=== PATIENT | male | born 1940 ===

== ENCOUNTER → 2017-09-14 | Outpatient (CLI) | payer MEDICARE, OTHER ==
[~2017-09-14] MED LIST: ALLO100 PO; ALLO300 PO; ATOR40TA; Aspirin EC81 MG; CEPH500 PO; DICL75ER PO; ELIQUIS5 MG; ENOX100I SC; ENOX120I SC; GLIP5 PO; HYDACE5 PO; INDO50; INSULANPEN SC; Indomethacin50 MG; LISHYD2012 PO; LISI20 PO; LISI5 PO; Levitra20 MG PO; MELO7.5 PO; METF500 PO; OMEG1CAP30 PO; PIOG45 PO; SITA100T2 PO; Simvastatin20 MG PO; WARF2.5 PO; Zofran4 MG PO
[2017-09-15 13:05] LABS: Stool Occult Bld Immuno 1 Negative (NEGATIVE)
== END | disposition home or self-care (01) ==
LOC: LAB 09:54 → LAB SHORT 09:54
PROVIDERS: Physician Assistant
DX: D64.9 Anemia, unspecified (principal)
CPT/HCPCS: 82274

== ENCOUNTER 2018-09-04 00:05 | Emergency (ER) | payer MEDICARE, OTHER ==
[~2018-09-04] VITALS: Ht 185.4 cm; Wt 111.1 kg
== END 2018-09-04 02:04 | disposition home or self-care (01) ==
LOC: ER 00:05
DX: H93.8X2 Other specified disorders of left ear (principal); Z88.2 Allergy status to sulfonamides; Z88.8 Allergy status to other drugs, medicaments and biological substances; Z79.899 Other long term (current) drug therapy; Z79.4 Long term (current) use of insulin; Z87.891 Personal history of nicotine dependence
CPT/HCPCS: 99282

== ENCOUNTER 2019-05-06 07:43 | Day surgery (SDC) | payer MEDICARE, OTHER ==
[~2019-05-06] VITALS: Ht 182.9 cm; Wt 114.8 kg
[2019-05-06] MEDS ORDERED: SILD50TA PO (08:37)
[2019-05-06] MEDS ORDERED: LISI20 PO (08:37)
[2019-05-06] MEDS ORDERED: FERSU300 PO (08:38)
--- NOTE | 2019-05-06 08:42 | NUR ---
05/06/19 0878 Lul Bowman CALL LIGHT WITHIN REACH. FRIEND AT BEDSIDE.
== END 2019-05-06 10:22 | disposition home or self-care (01) ==
LOC: ORSCSDS 07:43
PROVIDERS: Orthopaedic Surgery
PROC: 01N50ZZ Release Median Nerve, Open Approach (ICD-10-PCS; principal; 2019-05-06 09:15)
DX: G56.02 Carpal tunnel syndrome, left upper limb (principal); E11.9 Type 2 diabetes mellitus without complications; Z79.4 Long term (current) use of insulin; Z79.899 Other long term (current) drug therapy; Z87.891 Personal history of nicotine dependence
CPT/HCPCS: 82947; J0690; J2405; J2704; J7120

== ENCOUNTER → 2019-05-19 | Outpatient (CLI) | payer MEDICARE, OTHER ==
[~2019-05-19] MED LIST changes: +FERSU300 PO; +SILD50TA PO
== END | disposition home or self-care (01) ==
LOC: LAB 10:30 → LAB SHORT 10:30
DX: K52.9 Noninfective gastroenteritis and colitis, unspecified (principal)
CPT/HCPCS: 87015; 87045; 87046; 87177; 87205; 87209; 87899

== ENCOUNTER 2020-03-25 20:39 | Inpatient (IN) | payer MEDICARE, OTHER ==
[~2020-03-25] VITALS: Ht 185.4 cm; Wt 105.0 kg
[~2020-03-25 20:39] MED LIST changes: +BASAGLAR K100 UNIT/1 SC; -ELIQUIS5 MG; +ELIQUIS5 MG PO; -INDO50; +INDO50 PO; -INSULANPEN SC
[2020-03-25 21:06] LABS: PO2 Arterial 52.7 mmHg (80-100); pH Blood Arterial 7.45 (7.35-7.45)
[2020-03-25 21:10] LABS: BASOPHILS ABSOLUTE AUTO 0.02 K/mm3 (0.00-0.23); BASOPHILS PERCENT AUTO 0 % (0-2); EOSINOPHILS PERCENT AUTO 0 % (0-6); Hematocrit 36.3 % (37.0-53.0); Hemoglobin 12.5 g/dL (13.5-17.5); IMMATURE GRAN ABSOLUTE AUTO 0.04 K/mm3 (0.00-0.10); IMMATURE GRAN PERCENT AUTO 0 % (0-1); LYMPHOCYTES ABSOLUTE AUTO 0.42 K/mm3 (0.84-5.20); LYMPHOCYTES PERCENT AUTO 4 % (21-46); MONOCYTES ABSOLUTE AUTO 0.47 K/mm3 (0.16-1.47); MONOCYTES PERCENT AUTO 4 % (4-13); Mean Corpuscular HGB 31.8 pg (26.0-34.0); Mean Corpuscular HGB Conc 34.4 g/dL (31.5-36.5); Mean Corpuscular Volume 92 fL (80-100); NEUTROPHILS ABSOLUTE AUTO 10.29 K/mm3 (1.96-9.15); NEUTROPHILS PERCENT AUTO 92 % (41-73); Platelet Count 153 K/mm3 (150-400); RDW Coefficient Variation 13.1 % (11.7-14.2); RDW Standard Deviation 44.6 fL (35.1-46.3); Red Blood Cell Count 3.93 M/mm3 (4.30-5.90); White Blood Cell Count 11.24 K/mm3 (4.00-11.30)
[2020-03-25 21:27] LABS: International Normalized Ratio 1.09; Prothrombin Time Results 11.6 Sec (9.7-11.5)
[2020-03-25 21:34] LABS: Alanine Aminotransfer (ALT/SGP 58 U/L (12-78); Albumin, Blood 2.9 g/dL (3.4-5.0); Albumin/Globulin Ratio 0.7 (0.8-1.8); Alk Phos 89 U/L (50-136); Anion Gap 8 mmol/L (6-16); Aspartate Aminotrans (AST/SGOT 52 U/L (12-37); Bilirubin, Total 0.8 mg/dL (0.1-1.0); Blood Urea Nitrogen 23 mg/dL (8-24); Bun/Creatinine Ratio 22.1 (12.0-20.0); CO2, Blood 22 mmol/L (21-32); Calcium, Blood 8.5 mg/dL (8.5-10.1); Chloride, Blood 104 mmol/L (98-108); Creatinine, Blood 1.04 mg/dL (0.60-1.20); Globulin, Blood 4.1 g/dL (2.2-4.0); Glomerular Filtration Rate >60 (60-); Glucose, Blood 146 mg/dL (70-99); Potassium, Blood 3.9 mmol/L (3.5-5.5); Sodium, Blood 134 mmol/L (136-145); Troponin I <0.015 ng/mL (0.000-0.040)
--- NOTE | 2020-03-26 03:00 | NUR ---
PT TO ICU 11 VIA [facility] WITH ED RN ON 6L PER OXYMIZER AND SURGICAL MASK IN PLACE. PT ALERT AND ORIENTED x4, AMBULATES FROM ED [place] TO HOSPITAL BED WITH SBA. O2 SATURATIONS DECREASED TO 70'S WITH ACTIVITY, INCREASED OXYMIZER TO 15L WITH SLOW RECOVER TO O2 SATURATIONS>90%. CALL PLACED TO DR SESAY, ORDER FOR AIRVO IF O2 SATURATIONS MAINTAIN<90% AT 15L PER OXYMIZER. PT REPORTS NOT BEING ABLE TO TAKE A DEEP BREATH IN, STS HE BEGINS COUGHING AND CANNOT STOP WITH DEEP BREATHS. DISCUSSED WITH PT SITTING UPRIGHT AND PRONING DURING TIMES OF INCREASED SOB, PT VERBALIZED UNDERSTANDING. MONITOR SHOWS SINUS RHYTHM, HR 60'S-70'S, HYPERTENSIVE AT TIMES. PT DENIES GI/ ISSUES, STS HE HAD DIARRHEA APPROX 1 WEEK AGO BUT HAS SINCE HAD NORMAL BM, LAST BM 03/25/20. PT STS [place] CAME [place], BEGAN HAVING SOB/COUGHING ON 03/20/20 AND RECIEVED A COVID TEST ON 03/24/20 (RESULTS STILL PENDING), PT WITH INCREASED SOB CALLED EMS 03/25/20, BROUGHT TO ED WHERE COVID SWAB CONFIRMED POSTITIVE RESULT.
[2020-03-26 03:50] LABS: BASOPHILS ABSOLUTE AUTO 0.03 K/mm3 (0.00-0.23); BASOPHILS PERCENT AUTO 0 % (0-2); EOSINOPHILS PERCENT AUTO 0 % (0-6); Hematocrit 35.2 % (37.0-53.0); Hemoglobin 12.2 g/dL (13.5-17.5); IMMATURE GRAN ABSOLUTE AUTO 0.05 K/mm3 (0.00-0.10); IMMATURE GRAN PERCENT AUTO 0 % (0-1); LYMPHOCYTES ABSOLUTE AUTO 0.28 K/mm3 (0.84-5.20); LYMPHOCYTES PERCENT AUTO 2 % (21-46); MONOCYTES ABSOLUTE AUTO 0.31 K/mm3 (0.16-1.47); MONOCYTES PERCENT AUTO 3 % (4-13); Mean Corpuscular HGB Conc 34.7 g/dL (31.5-36.5); Mean Corpuscular Volume 92 fL (80-100); Mean Platelet Volume 9.9 fL (9.1-12.4); NEUTROPHILS ABSOLUTE AUTO 11.31 K/mm3 (1.96-9.15); NEUTROPHILS PERCENT AUTO 94 % (41-73); Platelet Count 152 K/mm3 (150-400); RDW Coefficient Variation 13.2 % (11.7-14.2); RDW Standard Deviation 45.2 fL (35.1-46.3); Red Blood Cell Count 3.81 M/mm3 (4.30-5.90); White Blood Cell Count 11.98 K/mm3 (4.00-11.30)
[2020-03-26 04:14] LABS: Alanine Aminotransfer (ALT/SGP 56 U/L (12-78); Albumin, Blood 2.6 g/dL (3.4-5.0); Albumin/Globulin Ratio 0.6 (0.8-1.8); Alk Phos 85 U/L (50-136); Anion Gap 8 mmol/L (6-16); Aspartate Aminotrans (AST/SGOT 47 U/L (12-37); Bilirubin, Total 0.6 mg/dL (0.1-1.0); Blood Urea Nitrogen 23 mg/dL (8-24); Bun/Creatinine Ratio 24.8 (12.0-20.0); CO2, Blood 24 mmol/L (21-32); Calcium, Blood 8.4 mg/dL (8.5-10.1); Chloride, Blood 103 mmol/L (98-108); Creatinine, Blood 0.93 mg/dL (0.60-1.20); Globulin, Blood 4.1 g/dL (2.2-4.0); Glomerular Filtration Rate >60 (60-); Glucose, Blood 184 mg/dL (70-99); Potassium, Blood 4.3 mmol/L (3.5-5.5); Sodium, Blood 135 mmol/L (136-145); Total Protein, Blood 6.7 g/dL (6.4-8.2)
--- NOTE | 2020-03-26 06:28 | NUR ---
SHIFT SUMMARY PT RESTS IN BED T/O NIGHT, CONTINUES TO REPORT COUGHING "FITS" WHERE HE BECOMES VERY SHORT OF BREATH AND O2 DESATURATS TO MID 80% WITH VERY SLOW RECOVERY. PT BEGAN MAINTAINING O2 SATURATIONS 86-88% ON 15L PER OXYMIZER, PLACED ON AIRVO CURRENTLY @ 50L AND 78% FIO2. DISCUSSED WITH PT CODE STATUS AND PT REPORTS HE WOULD WANT INTUBATION AND CHEST COMPRESSIONS IF NECESSARY. MONITOR SHOWS SINUS RHYTHM WITH HR 60'S-70'S, HYPERTENSIVE AT TIMES. PT CONTINUES TO DENY GI/ ISSUES, USES URINAL AT BEDSIDE INDEPENDENTLY. CALL LIGHT WITHIN REACH, ROOM PHONE AND CELL PHONE AT BEDSIDE.
--- NOTE | 2020-03-26 08:22 | NUR ---
CARE ASSUMED CARE AND REPORT ASSUMED FROM OSCAR NUNEZ. PT SLEEPING BUT EASILY AWAKENS. NOW SITTING UP IN BED; ADJUSTS HIMSELF IN BED. WITH SIMPLE MOVEMENTS, PT EASILY BECOMES SOB. ENCOURAGED PT TO LAY ON SIDES AND IN PRONE POSITION IF TOLERATED TO HELP WITH OXYGENATION. PT AGREES HE WILL ATTEMPT POSITION CHANGES. A/O X 3, CALM AND COOPERATIVE. PERSISTENT DRY COUGH AT THIS TIME; WILL INQUIRE ABOUT COUGH MEDICATION. VSS. AFEBRILE. NSR, HR 70S AND BP WNL. NO DIFFICULTY TAKING PILLS. WILL INQUIRE ABOUT DIET ORDER PT IS NPO AT THIS TIME. LUNG SOUNDS CLEAR IN UPPER HATHAWAY BUT DIMINSHED IN BASES; NO ABNORMAL LUNG SOUNDS AUSCULTATED. IV SALINE LOCKED. AIRVO 50L, FIO2 75%. WILL CONTINUE TO MONITOR.
--- NOTE | 2020-03-26 12:13 | NUR ---
REASSESSMENT PT REMAINS IN ROOM. CURRENTLY LYING ON SIDE. REMAINS ON AIRVO 50L, 65% FIO2. LUNG SOUNDS REMAIN CLEAR AND DIMINISHED. PT DID GET OUT OF BED AND AMBULATE TO TOILET FOR LARGE BM. UNABLE TO OBTAIN SPECIMEN. WHILE PT WAS SITTING ON TOILET, HE HAD COUGHING SPELL AND BECAME SOB. O2 INCREASED TO 85%. PT WAS ABLE TO GET BACK INTO BED, RECIEVED BEDBATH AND LINEN CHANGE, AND WAS ABLE TO RECOVER. VSS. REMAINS IN NSR, HR 80S. WILL CONTINUE TO MONITOR.
--- NOTE | 2020-03-26 16:14 | NUR ---
REASSESSMENT PT REMAINS IN ROOM, IN BED, WATCHING TV. NSR, HR 70-80S. BP WNL. AFEBRILE. NO CHANGE IN LUNG SOUNDS. PT DOES REMAIN ON AIRVO 50L, 84%. REMENDEVIR INFUSING PER ORDER. TESSALON VALERIO GIVEN AT THIS TIME. PT DESATURATES AT TIME, BUT DOES COME BACK UP TO AVERAGE OF 92%. CALL LIGHT IN REACH. WILL CONTINUE TO MONITOR.
--- NOTE | 2020-03-26 18:20 | NUR ---
SHIFT SUMMARY PT OUT OF BED ONCE THIS MORNING TO TOILET FOR BOWEL MOVEMENT AND DESATURATED QUICKLY. SINCE THEN, HE HAS REMAINED IN BED. O2 DEMANDS HAVE INCREASED THROUGHOUT AFTERNOON. PT CURRENTLY ON 60L, FIO2 75% WHILE IN PRONE POSITION. HOSPITALIST, MD MCBRIDE NOTIFIED OF INCREASED O2. PULMONOLOGY CONSULTED, SPOKE WITH MD ELLIS, WHO ORDERED BIPAP PROTOCOL IF NEEDED. PT DID TOLERATE EATING SMALL MEALS WITH NO SIGNS OF CHOKING. HAS REMAINED IN NSR, HR 70-80S WITH STABLE BP. AFEBRILE TODAY. TESSALON PEARLS AND ROBITUSSIN COUGH SYRUP GIVEN, ON ALTERNATING SCHEDULE. WILL ENCOURAGE PT TO CONTINUE TO STAY IN PRONE POSITION LONG TOLERATED. WILL GIVE BEDSIDE, HANDOFF REPORT TO JORDAN RN.
--- NOTE | 2020-03-26 21:48 | NUR ---
ASSUMPTION OF CARE PT AWAKE IN BED WATCHING TELEVISION, ORIENTED x4, ON AIRVO @ 60L AND 88% TO MAINTAIN O2 SATURATIONS>90%, PT HAS TIMES OF DESATURATIONS OF 82-87% MOSTLY ASSOCIATED WITH EXERTION AND COUGHING, PT VERY SLOW TO RECOVER BUT DOES NOT APPEAR TO BE IN ANY RESPIRATORY DISTRESS, REMAINS CALM AND CONCENTRATES ON SLOW BREATHS. PT CONTINUES TO HAVE DIFFICULTY TAKING DEEP BREATHS R/T COUGHING. MONITOR SHOWS SINUS RHYTHM WITH HR 70'S-80'S, HYPETENSION NOTED WITH SBP 150-160'S. PT IS AFEBRILE. PT DENIES GI/ ISSUES, URINALS AT BEDSIDE, PT USES INDEPENDENTLY. FRESH ICE WATER PROVIDED AT BEGINNING OF SHIFT, PT HAS CELL PHONE, ROOM PHONE, CALL LIGHT AND BED CONTROLS WITHIN REACH. HAND ELECTRONIC TECH PROVIDED AT BEDSIDE. PT DENIES ANY OTHER NEEDS AT THIS TIME.
--- NOTE | 2020-03-27 | NUR ---
PT DISCONNECTED O2 MONITOR FROM FINGER, TO PTS ROOM AND FOUND PT SIDEWAYS IN BED. RECONNECTED PT TO 02 MONITOR AND ASSISTED PT BACK TO SUPINE IN BED. PTS 02 SATURATIONS 83-85%, INCREASED FIO2 ON AIRVO WITH LITTLE IMPROVEMENT. ATTEMPTED REPOSITIONING PT HIGH FOWLERS. PT DECLINED POSITIONING PRONE. ATTEMPTED REPOSITIONING TO LEFT SIDE WITH NO IMPRVOEMENT. RT TO ROOM AND PT PALCED ON BIPAP.
--- NOTE | 2020-03-27 02:00 | NUR ---
PT PULLED CARDIAC AND O2 MONITOR, CALL PLACED TO DR SESAY, ORDERS FOR ONE TIME DOES OF ATIVAN AND PRECEDEX GTT IF ATIVAN NOT EFFECTIVE.
--- NOTE | 2020-03-27 02:15 | NUR ---
PT DISCONNECTED SELF FROM O2 MONITOR, TO PTS ROOM, PT MILDLY CONFUSED, ORIENTED TO SELF, LOCATION, AND EVENT BUT BELEIVES HE WILL BE GOING HOME TODAY. PT PLEASANT AND COOPERATIVE, EASILY REDIRECTED. PRECEDEX GTT INITIATED.
--- NOTE | 2020-03-27 03:00 | NUR ---
PT PULLED CALL LIGHT FROM WALL AND DISCONNECTED O2 MONITOR, NEW ORDER FOR BILAT SOFT WRIST RESTRAINTS. EXPLAINED REASON FOR RESTRAINTS TO PT, PT ACKNOWLEDGES UNDERSTANDING. SEE FLOWSHEET FOR PRECEDEX TITRATION.
--- NOTE | 2020-03-27 03:20 | NUR ---
PT PULLED WRIST RESTRAINTS OFF, REMOVED BIPAP AND SAT UP AT SIDE OF BED. THIS RN AND RT TO ROOM, O2 SATURATIONS 65% OFF OF BIPAP. PRECEDEX TITRATED TO 0.7 (SEE FLOWSHEET), PT POSTIONED BACK INTO BED, PLACED BACK IN WRIST RESTRAINTS. SEE RT ASSESSMENT/NOTES FOR BIPAP/CPAP SETTINGS.
[2020-03-27 04:12] LABS: Hematocrit 36.3 % (37.0-53.0); Hemoglobin 12.5 g/dL (13.5-17.5); Mean Corpuscular HGB 31.4 pg (26.0-34.0); Mean Corpuscular HGB Conc 34.4 g/dL (31.5-36.5); Mean Corpuscular Volume 91 fL (80-100); Mean Platelet Volume 10.3 fL (9.1-12.4); Platelet Count 190 K/mm3 (150-400); RDW Coefficient Variation 12.9 % (11.7-14.2); RDW Standard Deviation 43.7 fL (35.1-46.3); Red Blood Cell Count 3.98 M/mm3 (4.30-5.90); White Blood Cell Count 17.56 K/mm3 (4.00-11.30)
[2020-03-27 04:27] LABS: Anion Gap 10 mmol/L (6-16); Blood Urea Nitrogen 28 mg/dL (8-24); Bun/Creatinine Ratio 35.9 (12.0-20.0); CO2, Blood 21 mmol/L (21-32); Chloride, Blood 106 mmol/L (98-108); Creatinine, Blood 0.78 mg/dL (0.60-1.20); Glomerular Filtration Rate >60 (60-); Glucose, Blood 226 mg/dL (70-99); Potassium, Blood 3.5 mmol/L (3.5-5.5); Sodium, Blood 137 mmol/L (136-145)
--- NOTE | 2020-03-27 04:30 | NUR ---
PT CONTINUES TO BE RESTLESS/AGITATED IN BED, YELLING OVER BIPAP, PULLING AT RESTRAINTS. CALL PLACED TO DR SESAY, NEW ORDER FOR HALDOL AND ABG. WHILE IN ROOM WITH RT PT BECAME VERY VERBALLY ABUSIVE WITH STAFF AND MAKING FISTS WITH HANDS, PT REMAINED IN BILAT SOFT RESTRAINTS, HALDOL ADMINISTERED AND ABG OBTAINED. SEE RESULTS IN MAR.
[2020-03-27 04:33] LABS: PCO2 Arterial 35.1 mmHg (35-45); PO2 Arterial 68.2 mmHg (80-100); pH Blood Arterial 7.41 (7.35-7.45)
--- NOTE | 2020-03-27 06:00 | NUR ---
PT REMOVED O2 PULSE OXIMETER, TO PTS REMOVE TO REPLACE O2 MONITOR, AND TITRATE PRECEDEX PTS HR WAS DECREASING TO 45-55. PT FORCEFULLY GRABBED MY WRIST AND KICKED ME IN THE ABDOMEN. I REMOVED MYSELF FROMT HE ROOM AND NOTIFIED DR SESAY OF PTS INCREASED AGITATION. NEW ORDER FOR IM ZYPREXA. ZYPREXA ADMINISTERED WITH ASSISTANCE OF TWO OTHER STAFF MEMBERS, PT TOLERATED WELL, DECREASED AGITATION AT THIS TIME. PT TOLERATING CPAP.
--- NOTE | 2020-03-27 08:17 | NUR ---
CARE ASSUMED CARE AND REPORT ASSUMED FROM OSCAR NUNEZ. DURING REPORT, PT MANAGED TO GET HIS ARMS OUT OF RESTRAINTS, RIP HIS CPAP MASK OFF, AND ATTEMPT TO CLIMB OUT OF BED. SPO2 SATS IMMEDIATELY DECREASED TO LOW 80S AND PT WAS PHYSICALLY AGGRESSIVE TO STAFF. MANAGED TO GET HIM BACK INTO SUPINE POSITION IN BED WITH HOB SLIGHTLY ELEVATED, BUE WRISTS RESTRAINED, AND CPAP MASK BACK ON. CURRENTLY WEARING BIPAP IN CPAP MODE, WITH MODE 8, 100% FIO2. LUNG SOUNDS CLEAR BUT DIMINISHED ALL THROUGHOUT. PRECEDEX GTT AT 0.7 MCG. NSR, HR 60S. BP WNL. PT WAS ABLE TO TAKE FEW SIPS OF WATER AND SWALLOW HIS AM PILLS WITHOUT DIFFICULTY. HE IS CONFUSED AND ONLY ORIENTED TO SELF. AFEBRILE AT THIS TIME. WILL CONTINUE TO MONITOR CLOSELY.
--- NOTE | 2020-03-27 11:12 | NUR ---
REASSESSMENT PT UPRIGHT IN CHAIR POSITION IN BED. PRECEDEX GTT DECREASED TO 0.5 MCG, HR 43. HE IS CALM, QUIET, AND PEACEFUL. BUE REMAIN RESTRAINED. TOLERATING CPAP AT 10, FIO2 80%. RECIEVED COMPLETE BEDBATH, LINEN CHANGE, AND ATTENDS CHANGE. BP WNL. CONTINUES TO BE AFEBRILE. FENTANYL 50 MCG IVP GIVEN X1 PER MD. LUNG SOUNDS REMAIN CLEAR BUT DIMINISHED THROUGHOUT. WILL CONTINUE TO MONITOR.
[2020-03-27 13:36] LABS: Source, Urine Catheter
[2020-03-27 13:41] LABS: Bilirubin, Urine Neg (Neg); Blood, Urine 4+ (Neg); Glucose Qualitative, Urine Neg (Neg); Ketones, Urine Neg (Neg); Leukocyte Esterase, Urine Neg (Neg); Nitrite, Urine Neg (Neg); Protein, Urine Neg (Neg); Urobilinogen, Urine NORM (Normal)
[2020-03-27 13:57] LABS: Appearance, Urine Clear (Clear); Color, Urine Yellow (P-Yellow)
[2020-03-27 13:59] LABS: White Blood Cells, Urine 0-2 /hpf (0-5)
[2020-03-27 14:00] LABS: Bacteria Few /hpf; Squamous Epithelial Cells Not Seen /hpf (Few)
--- NOTE | 2020-03-27 17:42 | NUR ---
Per admit trigger, I attempted to meet with Mr. Bowie to offer prayer and staff counsel. RN advised not to enter room. Pt is Covid+ and unable to hold conversation at this time. Prayer provided in chapel for healing and I will remain available to pt and family.
--- NOTE | 2020-03-27 18:19 | NUR ---
SHIFT SUMMARY PT REMAINED IN BED ENTIRE SHIFT. BEGAN SHIFT WITH TEARING OFF CPAP MASK, CONFUSION, SCREAMING/HITTING STAFF, AND ATTEMPTING TO CRAWL OUT OF BED. PRECEDEX GTT INCREASED AT HIGH DOSES UNTIL PT WAS CALM AND COOPERATIVE, AND HR DECREASED. PRECEDEX GTT NOW INFUSING AT 0.3 MCG. CPAP REMAINED AT 10 ENTIRE SHIFT WITH FIO2 TITRATION 60-90%. CURRENTLY FIO2 70% WITH SPO2 93%. PT TOELRATES SHORT BREAKS OF MASK REMOVAL AND DRINKS WATER WITH NO SIGNS OF CHOKING. TOLERATING TAKING PILLS WITHOUT SIGNS OF CHOKING. HAS REMAINED IN BUE ENTIRE SHIFT. DID RECEIVE ENTIRE BEDBATH AND LINEN CHANGE. AFEBRILE ENTIRE SHIFT. WILL GIVE BEDSIDE, HANDOFF REPORT TO NOC RN.
--- NOTE | 2020-03-27 19:56 | NUR ---
ASSUMED CARE NOTE: ASSUMED CARE OF PT AT 1900, RECEVIED REPORT FROM JERMAN NUNEZ. PT IS ALERT AND ORIENTED TO SELF, PLACE, AND ABLE TO FOLLOW DIRECTIONS. PT IS ON CPAP, FiO2 AT 70%, SPO2 AT 94% RR AT 28 BREATHS PER MINUTE. PT IN IN SINUS CHASE WITH HR IN THE 50'S. PRECEDEX AT 0.3MCG/KG/HR. PT IS BILAT SOFT WRIST RESTRAINTS. PT ASKING FOR WATER, PT ABLE TO TOLERATE BEING OF CPAP FOR FEW MINUTES FOR ORAL CARE. WILL CONTINUE TO MONITOR PT T/O SHIFT.
--- NOTE | 2020-03-28 00:09 | NUR ---
UPDATE: RESPIRATIONS IN THE 40'S, WHEEZING NOTED IN THE LOWER BASES. CALLED REGARDING STATUS, ORDERS FOR BD PROTOCOL GIVEN.
--- NOTE | 2020-03-28 00:17 | NUR ---
PT YELLING OUT "WATER, I NEED WATER" PT UNABLE TO RECALL RECENT EVENTS, HOWEVER IS AWARE OF WHERE HE IS AND WHAT HIS DIAGNOSIS IS. PT GIVEN WATER, STS " IT TAKES PEOPLE 3 HOURS TO COME IN MY ROOM TO GIVE ME WATER" PT HAS BEEN ROUNDED ON EVERY 2HRS THIS SHIFT AND WHEN PT NEEDS WATER, PT USING CALL LIGHT AND CALLING OUT OFTEN.
--- NOTE | 2020-03-28 01:38 | NUR ---
UPDATE: PT STS " MY MIND IS RACING, I NEED MY HAND FREE TO TOUCH MY EYELID SOFTLY SO IT CAN STOP, I AWAKE IN PANIC" PT IS ASKING FOR WATER, RR IN THE MID 40'S. THERAPUTIC TOUCH WAS USED. PT WAS ABLE TO BE CONSOLED THROUGH CONVERSTATION.
--- NOTE | 2020-03-28 04:34 | NUR ---
UPDATE: PT USED CALL LIGHT, STS " I AM SCARED, I WOKE UP SCARED" PT BREATHING 50 BREATHS PER MINUTE. PT STS " I AM TERRIFIED I WILL NOT GET BETTER" PRECEDEX INCREASED TO 0.5MCG/KG/HR. STAYED WITH PT, GAVE THERAPUTIC TOUCH, LISTENED TO HIS CONCERNS. MUSIC THERAPY PROVIDED. PT ABLE TO CONSOLE AFTER 10 MINUTES. RR DOWN TO 25 BREATHS PER MINTUE.
[2020-03-28 05:14] LABS: BASOPHILS ABSOLUTE AUTO 0.02 K/mm3 (0.00-0.23); BASOPHILS PERCENT AUTO 0 % (0-2); EOSINOPHILS PERCENT AUTO 0 % (0-6); Hematocrit 37.8 % (37.0-53.0); Hemoglobin 12.9 g/dL (13.5-17.5); IMMATURE GRAN ABSOLUTE AUTO 0.12 K/mm3 (0.00-0.10); IMMATURE GRAN PERCENT AUTO 1 % (0-1); LYMPHOCYTES ABSOLUTE AUTO 0.36 K/mm3 (0.84-5.20); LYMPHOCYTES PERCENT AUTO 2 % (21-46); MONOCYTES ABSOLUTE AUTO 0.65 K/mm3 (0.16-1.47); MONOCYTES PERCENT AUTO 4 % (4-13); Mean Corpuscular HGB Conc 34.1 g/dL (31.5-36.5); Mean Corpuscular Volume 91 fL (80-100); Mean Platelet Volume 10.5 fL (9.1-12.4); NEUTROPHILS ABSOLUTE AUTO 14.71 K/mm3 (1.96-9.15); NEUTROPHILS PERCENT AUTO 93 % (41-73); Platelet Count 209 K/mm3 (150-400); RDW Coefficient Variation 13.2 % (11.7-14.2); RDW Standard Deviation 44.1 fL (35.1-46.3); Red Blood Cell Count 4.16 M/mm3 (4.30-5.90); White Blood Cell Count 15.86 K/mm3 (4.00-11.30)
[2020-03-28 05:35] LABS: Anion Gap 8 mmol/L (6-16); Blood Urea Nitrogen 38 mg/dL (8-24); Bun/Creatinine Ratio 42.8 (12.0-20.0); CO2, Blood 24 mmol/L (21-32); Calcium, Blood 8.9 mg/dL (8.5-10.1); Chloride, Blood 105 mmol/L (98-108); Creatinine, Blood 0.89 mg/dL (0.60-1.20); Glomerular Filtration Rate >60 (60-); Glucose, Blood 251 mg/dL (70-99); Potassium, Blood 4.3 mmol/L (3.5-5.5); Sodium, Blood 137 mmol/L (136-145)
--- NOTE | 2020-03-28 05:57 | NUR ---
SHIFT SUMMARY: SEE PREVIOUS NOTES. PT REMAINS CONFUSED, HOWEVER IS ABLE TO STATE PLACE, YEAR, AND ABLE TO FOLLOW DIRECTIONS. PT HAS BEEN ON CPAP T/O SHIFT, NO CHANGES TO SETTINGS. PT IS ABLE TO TOLERATE SMALL BREAKS OFF CPAP FOR WATER BREAKS AND ORAL CARE. PT HAS BEEN IN EMOTIONAL DISTRESS T/O SHIFT, REQUIRES COMFORTING WHEN HE AWAKES FROM SLEEPING. PT ON PRECEDEX, CURRENTLY RUNNING AT 0.5MCG/KG/HR. PT IN SINUS CHASE WITH HR BETWEEN 40-70 BPM. BP STABLE. FOELY PATENT AND DRAINING TO GRAVITY 900ML OUTPUT THIS SHIFT. WILL CONTINUE TO MONITOR PT UNTIL REPORT IS GIVEN TO ONCOMING SHIFT.
--- NOTE | 2020-03-28 07:34 | NUR ---
Received report from Nicholas NUNEZ. Patient was yelling out and confused and orients quickly. Went in room and performed oral care and gave fluids. He is on CPAP 10, 80% with Sats 87-88%. He has 20ga IV in RAC and dressing intact and site WNL's and is flushed and SL'd. He also has 20ga LFA dressing intact and site WNL's and is infusing Precedex at 0.5 mcg/kg/hr. PENNIE. He has 16Fr Temp leung and is afebrile 97.9.
--- NOTE | 2020-03-28 09:30 | NUR ---
Sat patient up in bed for breakfast and am meds. Placed on oximizer 10L and sats maintained in the high 80's for about ten minutes and started to de sats. He stated he was not hungry and re-applied CPAP at same setting and sats returned to high 80-to low 90's. He has been resting. He tolerated PO meds with water.
--- NOTE | 2020-03-28 12:12 | NUR ---
No significant changes with patient, he rem ains on CPAP and sats 90%. RT will be by to trial AirVo. Will try lunch then.
--- NOTE | 2020-03-28 12:15 | NUR ---
Reduced Precedex to 0.3 mcg/kg/hr.
--- NOTE | 2020-03-28 15:23 | NUR ---
Patient has shaka resting with minimal anxiety. Needed to increase Precedex back up to 0.5 mcg/kg/hr at 1400. talked with patiemnt to se if he could rest on stomach and he stated no, but could lay on side toward stomach and has been for about an hour.
--- NOTE | 2020-03-28 18:00 | NUR ---
Patient continues to rest off and on and calls intermitently for water. He gets very anxious even when off CPAP for a few seconds to drink. family has called for updates. he remains on CPAP 10, 70% and sats 88-94%. He has not eaten today and advised Dr Morley and will supplement tomorrow. VSS, See EMR. Rui remains inplace and had 1300ml out light patti colored. He has been positioning self in bed and we have been try to get a close to prone as possible being on side leaning over. PENNIE.
--- NOTE | 2020-03-28 19:00 | NUR ---
ASSUMED CARE ASSUMED CARE OF PATIENT. REMAINS ON CPAP 10, FIO2 70%. RR 40s. INCREASED DYSPNEA WITH EXERTION AND ANXIETY. OCCASIONAL MOIST COUGH NOTED. INCREASED ANXIOUSNESS NOTED WHENEVER CPAP MASK IS REMOVED. CALMS WITH REASSURANCE. PRECEDEX INFUSING AT 0.5MCG/KG/HR. MONITOR SHOWS NSR, RATE 60-70s. PT IS HYPERTENSIVE AT TIMES, BUT OVERALL NORMOTENSIVE. TEMP 99.0F PER COSTELLO TEMP PROBE. NPO. COSTELLO PATENT AND DRAINING YELLOW URINE. SEE SHIFT ASSESSMENT FOR FULL ASSESSMENT.
--- NOTE | 2020-03-29 02:15 | NUR ---
TACHYPNEA/DYSPNEA PT WITH INCREASED DYSPNEA AND ANXIOUSNESS. TACHYPNEIC- RATE 50s. CALL TO DR. COOL AND NEW ORDER RECEIVED FOR FENTANYL 50MCG IV PRN.
[2020-03-29 04:33] LABS: BASOPHILS ABSOLUTE AUTO 0.02 K/mm3 (0.00-0.23); BASOPHILS PERCENT AUTO 0 % (0-2); EOSINOPHILS PERCENT AUTO 0 % (0-6); Hematocrit 39.1 % (37.0-53.0); Hemoglobin 13.3 g/dL (13.5-17.5); IMMATURE GRAN ABSOLUTE AUTO 0.13 K/mm3 (0.00-0.10); IMMATURE GRAN PERCENT AUTO 1 % (0-1); LYMPHOCYTES ABSOLUTE AUTO 0.25 K/mm3 (0.84-5.20); LYMPHOCYTES PERCENT AUTO 2 % (21-46); MONOCYTES ABSOLUTE AUTO 0.58 K/mm3 (0.16-1.47); MONOCYTES PERCENT AUTO 4 % (4-13); Mean Corpuscular HGB 31.2 pg (26.0-34.0); Mean Corpuscular Volume 92 fL (80-100); Mean Platelet Volume 10.4 fL (9.1-12.4); NEUTROPHILS ABSOLUTE AUTO 14.11 K/mm3 (1.96-9.15); NEUTROPHILS PERCENT AUTO 94 % (41-73); Platelet Count 190 K/mm3 (150-400); RDW Coefficient Variation 13.5 % (11.7-14.2); RDW Standard Deviation 45.8 fL (35.1-46.3); Red Blood Cell Count 4.26 M/mm3 (4.30-5.90); White Blood Cell Count 15.09 K/mm3 (4.00-11.30)
[2020-03-29 04:59] LABS: Anion Gap 7 mmol/L (6-16); Blood Urea Nitrogen 38 mg/dL (8-24); CO2, Blood 22 mmol/L (21-32); Calcium, Blood 8.6 mg/dL (8.5-10.1); Chloride, Blood 108 mmol/L (98-108); Creatinine, Blood 0.86 mg/dL (0.60-1.20); Glomerular Filtration Rate >60 (60-); Glucose, Blood 205 mg/dL (70-99); Potassium, Blood 4.7 mmol/L (3.5-5.5); Sodium, Blood 137 mmol/L (136-145)
--- NOTE | 2020-03-29 06:40 | NUR ---
SHIFT SUMMARY NO ACUTE CHANGES. REMAINED ON CPAP 10 WITH FIO2 70-70%. NOW AT 75%. CONTINUES TO BE TACHYPNEIC WITH RR BETWEEN 30s-50s. MEDICATED WITH FENTANYL 50MCG IV X 2 DOSES WITH GOOD RESULTS. PRECEDEX BETWEEN 0.5-0.7MCG/KG/HR DURING SHIFT- NOW AT 0.7MCG/KG/HR. OCCASIONAL PERIODS OF ANXIETY. BP STABLE WITH OCCASIONAL HYPERTENSION NOTED. MONITOR SHOWS SR-SR, RATE 50-70s. TMAX 100.0F. COSTELLO PATENT AND DRAINING. ONLY TOLERATES 5-10 SECOND BREAKS FROM CPAP. SWALLOWS WATER WITHOUT DIFFICULTY. WILL REPORT TO ONCOMING RN WHEN AVAILABLE.
--- NOTE | 2020-03-29 07:19 | NUR ---
Received report from Padmini NUNEZ. Patient laying in bed with HOB at 30 degrees. He is on CPAP 10, FiO2 75% with sats high80 to low 90's. Dr Mcpherson was in room assessing patient and came out and tube fell off of CPAP and patient yelling for help. Got dressed very quickly and fixed CPAP and did oral care and gave fluids. Patient calm again. Patient has 20ga LFA dressing intact and site WNL's and is infusing Precedex at 0.7 mcg/kg/hr and NS TKO. He also has 20ga IV in RAC dressing intact and site WNL's and is flushed and SL'd. He has 16Fr. temp leung in place and is draining to gravity light patti colored urine and temp 98.8. He is intermitently hypertensive 170 systolic. He repositions self in bed and PENNIE
--- NOTE | 2020-03-29 10:00 | NUR ---
Patient continues to rest on CPAP 10, FiO2 75%. Patient is getting bath and linen change. He is no longer hypertensive and systolic 120's. Continues to reposition self in bed. No other significant changes.
--- NOTE | 2020-03-29 12:05 | NUR ---
Patient was trialed on AirVo and failed r/t saturations and placed back on CPAP 10, FiO2 80%. He is back to resting. At 1030 increased to 80% from 75% r/t de-sat low 80%'s. We are starting on Clinimix for nutrition. No other significant changes. Family given update.
--- NOTE | 2020-03-29 14:50 | NUR ---
Patient has had a few intermitent anxiety moments and medicated per MAP No changes to CPAP and contines at 10, FiO2 75%. with sats in the low 90's.His RAC Iv went bad and pulled and will replace for new one. VSS, See EMR. He has tolerated intermitent water and oral care. Linen re-changed.
--- NOTE | 2020-03-29 17:33 | NUR ---
Patient has been resting well with CPAP in place and settings 10, FiO2 80% and sats 95%. He remains SB 50-6-'s and had several hypertensive BP in the 170's. Clinimix remains at 100ml/hr and just started fat emulsions. Precedex at 0.7 mcg/kg/hr and is working well. He continues to be able to communicate needs and follws directions well. Fabian output 900 ml of light patti and 612 ml in. Family called and gave update to , very concerned that he won'r come home.
--- NOTE | 2020-03-29 19:00 | NUR ---
ASSUMED CARE ASSUMED CARE OF PATIENT. CONTINUES ON BIPAP 10 WITH FIO2 80%. RR 30s-40s. PRECEDEX INFUSING AT 0.7MCG/KG/HR. ORIENTED EXCEPT TO DATE/TIME. MOVES ALL EXTREMITIES AND IS ABLE TO RESPOSITION SELF IN BED. DENIES C/O PAIN. TOLERATING SIPS OF WATER AND SMALL 5-10 SECOND BREAKS FROM CPAP. MONITOR SHOWS SB-SR, RATE 50-60s. SBP 160s. AFEBRILE. COSTELLO PATENT AND DRAINING CLEAR YELLOW URINE. CLINIMIX AND LIPIDS INFUSING PER ORDER. SEE SHIFT ASSESSMENT FOR FULL ASSESSMENT.
--- NOTE | 2020-03-29 23:10 | NUR ---
HYPERTENSION DR. COOL NOTIFIED OF SBP 170s-180s. NEW ORDER RECEIVED FOR LABETALOL 20MG IV Q4H PRN.
[2020-03-30 03:50] LABS: Anion Gap 8 mmol/L (6-16); Blood Urea Nitrogen 36 mg/dL (8-24); Bun/Creatinine Ratio 39.3 (12.0-20.0); CO2, Blood 23 mmol/L (21-32); Calcium, Blood 8.6 mg/dL (8.5-10.1); Chloride, Blood 105 mmol/L (98-108); Creatinine, Blood 0.92 mg/dL (0.60-1.20); Glomerular Filtration Rate >60 (60-); Glucose, Blood 324 mg/dL (70-99); Potassium, Blood 4.8 mmol/L (3.5-5.5); Sodium, Blood 136 mmol/L (136-145)
--- NOTE | 2020-03-30 06:30 | NUR ---
SHIFT SUMMARY REMAINED ON CPAP- PRESSURE NOW OF 16. FIO2 INCREASED TO 100% DURING NOC. TACHYPNEIC WITH RR 30s-50s. RATE WILL DECREASE TO MID-20s FOR SHORT TIME AFTER FENTANYL GIVEN. PRECEDEX CONTINUES NOW AT 0.6MCG/KG/HR. OCCASIONAL PERIODS OF INCREASED ANXIETY AND AIR HUNGER, BUT SEEMS TO BE HAPPENING LESS. OCCASIONAL NON-PRODUCTIVE COUGH. MONITOR SHOWS SB-SR, RATE 50-70s. HYPERTENSIVE AT TIMES WITH SBP 170-180s. COSTELLO WITH GOOD URINE OUTPUT. TOLERATING SIPS OF WATER WITH QUICK 5-10 SECONDS BREAK OFF OF THE CPAP. CLINIMIX INFUSING AT 100CC/HR. WILL REPORT TO ONCOMING RN WHEN AVAILABLE.
--- NOTE | 2020-03-30 07:48 | NUR ---
ASSUMED CARE REPORT RECIEVED. PT IS LAYING IN BED WITH CPAP IN PLACE. PT IS ALERT AND ORIENTED. PT IS FIDGETING IN BED AND ANXIOUS AT TIMES. PT IS CONFUSED TO TIME/DATE. PT FOLLOWING DIRECTIONS APPROPRIATELY. PT WITH CPAP AT 16, FIO2 TITRATED DOWN TO 95%. PT WITH LABORED BREATHING, RR 40. PT TOLERATES QUICK BREAKS FROM CPAP FOR SIPS OF WATER. VITAL SIGNS STABLE, PT HYPERTENSIVE. CLINIMIX INFUSING AT 100 ML/HR, NS TKO, AND PRECEDEX AT 0.6 MCG/KG/HR. COSTELLO TEMP PROBE IN PLACE WITH YELLOW OUTPUT NOTED. PT DENIES PAIN OR DISCOMFORT AT THIS TIME. WILL CONTINUE TO MONITOR.
--- NOTE | 2020-03-30 10:37 | NUR ---
DR COOL/FAMILY UPDATE DR COOL IN TO SEE PT. UPDATED TO CURRENT CONDITION AND DESATURATION INTO THE 60'S WHEN PT PULLED CPAP OFF. CPAP SETTINGS REMAIN AT PRESSURE OF 16, FIO2 100%. PLAN IS TO KEEP PT CALM AND SEDATED WITH PRECEDEX AND CONTINUE CPAP LONG POSSIBLE. NO PLANS TO INTUBATE AT THIS TIME. PT SPOUSE AND DAUGHTER UPDATED VIA PHONE OF CURRENT CONDITION AND PLAN OF CARE. WILL CONTINUE TO MONITOR.
--- NOTE | 2020-03-30 13:50 | NUR ---
DESATURATION PT FOUND TO HAVE PULLED OFF CPAP MASK COMPLETELY AND MOVED SELF TO HAVE FEET HANGING OVER THE BED RAIL AND PT LEANING FORWARD. PT SPO2 DROPPED TO LOW 60'S. RT AT BEDSIDE, PLACED MASK BACK ON AND PUT PT ON BIPAP SETTINGS 20/10, FIO2 100%. PT IS UNRESPONSIVE AT THIS TIME, STARING AT THE CEILING. PT SPO2 IMPROVED OVER LONG PERIOD OF TIME. DR COOL AT DOORWAY AND UPDATED TO SITUATION. PT REMAINS ON PRECEDEX, TITRATED DOWN TO 0.7 MCG/KG/HR AND PT PLACED IN SBW RESTRAINTS. NO NEW ORDERS AT THIS TIME. PT SPOUSE CALLED FOR UPDATE FREDO AFTER THIS EPISODE AND UPDATED TO CURRENT CONDITION AND RECENT EVENTS OF DESATURATING. UPDATED TO PLAN OF CARE. PT SPOUSE REPORTS SHE IS COVID POSITIVE AND STATES WOULD LIKE TO VISIT PT, BUT UNDERSTANDS CONCERNS OF VISITATION AND IS GOING TO REMAIN AT HOME AT THIS TIME. WILL CONTINUE TO MONITOR PT.
--- NOTE | 2020-03-30 18:01 | NUR ---
SHIFT SUMMARY PT REMAINS ON CPAP SETTINGS 16, FIO2 TITRATED DOWN TO 80% AT THIS TIME. PT SEDATED WITH PRECEDEX AT 0.7MCG/KG/HR AND ATIVAN PRN. PT WITH OUT ANY MORE DESATTING OR REMOVAL OF CPAP EPISODES THIS EVENING. SBW RESTRAINTS IN PLACE. PT REMAINS AROUSABLE TO VERBAL STIMULI, BUT NOT SPEAKING IN MEANINGFUL SENTENCES AT THIS TIME. CLINIMIX INFUSING AT 100 ML/HR AND NS TKO. COSTELLO TEMP PROBE REMAINS IN PLACE WITH YELLOW URINE OUTPUT NOTED. PT SPOUSE AND DAUGHTER UPDATED MULTIPLE TIMES THROUGHOUT THE DAY. VITAL SIGNS STABLE AT THIS TIME. SEE PREVIOUS NURSES NOTES FOR MORE SHIFT INFO. WILL CONTINUE TO MONITOR AND REPORT OFF TO ONCOMING RN.
--- NOTE | 2020-03-30 19:00 | NUR ---
ASSUMED CARE ASSUMED CARE OF PATIENT. SEDATED WITH PRECEDEX AT 0.7MCG/KG/HR. OPENS EYES TO LOUD VERBAL STIMULI. NOT FOLLOWING COMMANDS. BILATERAL SOFT WRIST RESTRAINTS IN PLACE. REMAINS ON CPAP OF 16. CONTINUES TO BE TACHYPNEIC. CLINIMIX AND LIPIDS INFUSING PER ORDER. COSTELLO PATENT AND DRAINING YELLOW URINE. VSS. AFEBRILE. SEE SHIFT ASSESSMENT FOR FULL ASSESSMENT.
[2020-03-31 04:10] LABS: Anion Gap 5 mmol/L (6-16); Blood Urea Nitrogen 35 mg/dL (8-24); Bun/Creatinine Ratio 44.5 (12.0-20.0); CO2, Blood 24 mmol/L (21-32); Calcium, Blood 8.8 mg/dL (8.5-10.1); Chloride, Blood 104 mmol/L (98-108); Creatinine, Blood 0.79 mg/dL (0.60-1.20); Glomerular Filtration Rate >60 (60-); Glucose, Blood 410 mg/dL (70-99); Magnesium, Blood 2.4 mg/dL (1.6-2.4); Phosphorus, Blood 3.7 mg/dL (2.5-4.9); Potassium, Blood 5.6 mmol/L (3.5-5.5); Sodium, Blood 133 mmol/L (136-145)
[2020-03-31 04:15] LABS: Hematocrit 38.1 % (37.0-53.0); Hemoglobin 12.9 g/dL (13.5-17.5); Mean Corpuscular HGB 31.6 pg (26.0-34.0); Mean Corpuscular HGB Conc 33.9 g/dL (31.5-36.5); Mean Corpuscular Volume 93 fL (80-100); Mean Platelet Volume 10.6 fL (9.1-12.4); Platelet Count 93 K/mm3 (150-400); RDW Coefficient Variation 13.5 % (11.7-14.2); RDW Standard Deviation 46.5 fL (35.1-46.3); Red Blood Cell Count 4.08 M/mm3 (4.30-5.90); White Blood Cell Count 13.98 K/mm3 (4.00-11.30)
[2020-03-31 04:24] LABS: BAND PERCENT MAN 9 % (0-8); BASOPHILS PERCENT MAN 0 % (0-2); EOSINOPHILS PERCENT MAN 0 % (0-6); LYMPHOCYTES ABSOLUTE MAN 0.27 K/mm3 (0.84-5.20); LYMPHOCYTES PERCENT MAN 2 % (21-46); MONOCYTES ABSOLUTE MAN 0.27 K/mm3 (0.16-1.47); MONOCYTES PERCENT MAN 2 % (4-13); NEUTROPHILS ABSOLUTE MAN 13.42 K/mm3 (1.96-9.15); SEG NEUTROPHILS PERCENT MAN 87 % (41-73); TOTAL CELLS COUNTED 100
--- NOTE | 2020-03-31 06:24 | NUR ---
SHIFT SUMMARY NO ACUTE CHANGES. REMAINED ON CPAP 16 WITH FIO2 NOW @ 75%. RR MID 20s-50s. MEDICATED WITH FENTANYL 50MCG IV X 1 DOSE AND ATIVAN 2MG IV X 4 DOSES AN ADJUNCT TO SEDATION. PT MOVES ALL EXTREMITIES WHEN AGITATED. OCCASIONALLY THROWS LEGS OVER SIDE OF BED. BILATERAL SOFT WRIST RESTRAINTS REMAIN ON. PRECEDEX CONTINUES AT 0.7MCG/KG/HR. OCCASIONAL MOANS, BUT NO OTHER VERBAL RESPONSE. RESISTANT TO CARE AT TIMES. NOT FOLLOWING ANY COMMANDS. CLINIMIX INFUSING @ 100CC/HR PER ORDER. NPO D/T SEDATION. COSTELLO PATENT AND DRAINING YELLOW URINE. WILL REPORT TO ONCOMING RN WHEN AVAILABLE.
--- NOTE | 2020-03-31 08:52 | NUR ---
AM NOTE... ASSUMED CARE OF PT APROX 0700, PT IS CURRENTLY ON CPAP AND SEDATED. PT HAS BILAT SOFT WRIST RESTRAINTS TO PREVENT HIM FROM PULLING OFF THE CPAP MASK. PT'S VS STABLE AT THIS TIME. PRECEDEX RUNNING AT 0.7MCG WITH ATIVAN AND FENTANYL PRN. PT MOANS AND RESPONDS TO VERBAL STIMULI BUT DOES NOT FOLLOW COMMANDS AT THIS TIME. PT IS ON CPAP AT 80% FIO2. L/S COARSE CRACKLES NOTED IN THE RIGHT UPPER, MID AND LOWER LOBE AND LEFT LOWER LOBES. LEFT UPPER LOBE WAS CLEAR. BT PRESENT AND HYPOACTIVE ABD IS SOFT AND NONTENDER TO PALP. PT'S RR IS IN THE 30'S-40'S AND 40'S-50'S WHEN AGITATED. TRACE EDEMA NOTED TO THE PT'S HANDS BILAT. COSTELLO IS PATENT AND DRAINING CLEAR DARK YELLOW URINE TO GRAVITY. PT'S HAS CALLED MULTIPLE TIMES THIS AM, THIS RN UPDATED THE PT'S ON CURRENT CONDITION AND PLAN OF CARE. CALL LIGHT IN REACH WILL CONTINUE TO MONITOR.
--- NOTE | 2020-03-31 10:44 | NUR ---
Supportive call to to establish contact with our department. we offered to give her updates as she is not sure she can come in.
--- NOTE | 2020-03-31 14:00 | NUR ---
Conference Phone Call Nuclear Equipment Sales Engineer requests joint call with pt's family. Conference call with pt's son, two daughters, and . Discussion by cloth shrinking machine operator helper with family that covered prognosis, current condition, risks, resusitation. Late Entry: 1644 Pt's son called palliative care to update his father's code status. There is an existing POLST form that pt's has produced to the rest of the family to help with wishes of the patient. He would like to be DNR/DNI and a family member will be able to bring a copy of the POLST form for our records.
--- NOTE | 2020-03-31 18:47 | NUR ---
SHIFT SUMMARY... PT HAS BEEN ON CPAP AT 80% FIO2 FOR MOST OF THE SHIFT, PT HAS BEEN ON PRECEDEX AND IN RESTRAINTS IN ORDER TO KEEP THE CPAP MASK ON T/O THE SHIFT THE PT'S VS AND O2 SATS HAVE BEEN STABLE. AT APROX 1700 THE PT HAD SLID DOWN THE BED ENOUGH TO WHERE HE WAS ABLE TO GRAB THE CPAP HOSE AND HAD PULLED THE MASK HALF WAY OFF HIS FACE, THE PT'S O2 SATS HAD DROPPED QUICKLY DOWN TO THE LOW 80'S. PT HAD STARTED TO YELL "HELP HELP HELP!" AND STARTED TO PANIC. RT CAME INTO THE ROOM AND PUT THE PT ON AIRVO AT 60L AND 93%FIO2 TO SEE IF THE PT COULD TOLERATE THIS. THE PT WAS ABLE TO TOLERATE THIS FOR APROX 10 MINS THEN HIS SATS DROPPED QUICKLY DOWN TO THE 70'S. THE CPAP WAS THEN PUT BACK ON AT 100% FIO2 UNTIL THE PT RECOVERED. CURRENTLY THE PT HAS BEEN TITRATED DOWN TO 75% FIO2 ON THE CPAP. OTHER VS STABLE. CALL LIGHT IN REACH WILL CONTINUE TO MONITOR.
--- NOTE | 2020-03-31 20:00 | NUR ---
ASSUMED CARE OF PT AT 1915. REPORT RECEIVED. PT PRESENTS IN BED. AGGRESSIVELY ATTEMPTING TO PULL OFF HIS BIPAP MASK AND IS UNSUCESSFUL. READJUSTED SOFT RESTRAINTS FOR PT'S SAFETY. NOTED TO BE TACHYPNEIC WITH RESPIRATORY RATES 30'S TO 40'S. INCREASED PRECEDEX DRIP TO 0.5 MCG'S PENDING RESULTS. PT MAINTAINING OXYGEN SATURATIONS > 90 PERCENT. WILL REVIEW CHART AND PLAN OF CARE FOR THIS PT.
--- NOTE | 2020-04-01 00:30 | NUR ---
PT AFEBRILE AT THIS TIME. RESPIRATORY RATES HAVE IMPROVED WITH PRECEDEX AT 0.7 MCG'S. HAVE MEDICATED PT WITH 1 MG ATIVAN EARLIER IN SHIFT.
[2020-04-01 05:01] LABS: BASOPHILS ABSOLUTE AUTO 0.02 K/mm3 (0.00-0.23); BASOPHILS PERCENT AUTO 0 % (0-2); EOSINOPHILS PERCENT AUTO 0 % (0-6); Hematocrit 38.5 % (37.0-53.0); Hemoglobin 12.8 g/dL (13.5-17.5); IMMATURE GRAN ABSOLUTE AUTO 0.15 K/mm3 (0.00-0.10); IMMATURE GRAN PERCENT AUTO 1 % (0-1); LYMPHOCYTES PERCENT AUTO 1 % (21-46); MONOCYTES ABSOLUTE AUTO 0.37 K/mm3 (0.16-1.47); MONOCYTES PERCENT AUTO 2 % (4-13); Mean Corpuscular HGB 30.8 pg (26.0-34.0); Mean Corpuscular HGB Conc 33.2 g/dL (31.5-36.5); Mean Corpuscular Volume 93 fL (80-100); Mean Platelet Volume 10.8 fL (9.1-12.4); NEUTROPHILS ABSOLUTE AUTO 14.87 K/mm3 (1.96-9.15); NEUTROPHILS PERCENT AUTO 95 % (41-73); Platelet Count 85 K/mm3 (150-400); RDW Coefficient Variation 13.6 % (11.7-14.2); RDW Standard Deviation 46.6 fL (35.1-46.3); Red Blood Cell Count 4.16 M/mm3 (4.30-5.90); White Blood Cell Count 15.61 K/mm3 (4.00-11.30)
[2020-04-01 05:15] LABS: Anion Gap 7 mmol/L (6-16); Blood Urea Nitrogen 43 mg/dL (8-24); Bun/Creatinine Ratio 48.5 (12.0-20.0); CO2, Blood 24 mmol/L (21-32); Calcium, Blood 8.3 mg/dL (8.5-10.1); Chloride, Blood 104 mmol/L (98-108); Creatinine, Blood 0.89 mg/dL (0.60-1.20); Glomerular Filtration Rate >60 (60-); Glucose, Blood 334 mg/dL (70-99); Magnesium, Blood 2.5 mg/dL (1.6-2.4); Phosphorus, Blood 4.4 mg/dL (2.5-4.9); Potassium, Blood 5.8 mmol/L (3.5-5.5); Sodium, Blood 135 mmol/L (136-145)
[2020-04-01 05:29] LABS: PCO2 Arterial 41.7 mmHg (35-45); PO2 Arterial 87.5 mmHg (80-100); pH Blood Arterial 7.39 (7.35-7.45)
--- NOTE | 2020-04-01 07:25 | NUR ---
Received report from Mirtha NUNEZ. Patient supine in bed to, left side. He is anxious and unable to follow commands or track movement with his eyes. He is on BiPAP 10/5 and 35% FiO2 and sats 97%. He is in four point soft restraints as he is pulling them and squirming in bed. He has 16 Fr. leung draining to gravity yellow urine. He has PICC line to GALEN dressing intact and site WNL's and is infusing Precedex 1.4 mcg/kg/hr, NS TKO, D5 at 50 ml/hr and Clinimix at 100ml/hr. He has right lateral foot wound and dressing intact and parul wrap bandage and radu area on coccyx.
--- NOTE | 2020-04-01 08:50 | NUR ---
Receieved report from Raulito NUNEZ. Patient is alert to verbal stimuli and is able to communicate his needs after awakening him. he is on CPAP 16 80% and full face mask. He is in bilateral soft restraints upper extremities r/t pull at CPAP. he has 16 Fr temp leung draining to gravity yellow urine and temp of 98.2. He has PowerGlide to GALEN dressing intact and site WNL's and is infusing clinimix and fat emulsions. He also has 20ga IV to RFA and is infusing Precedex at 0.6 mcg/kg/hr and NS TKO
--- NOTE | 2020-04-01 11:51 | NUR ---
Patient slid down in bed and was grabing at mask and became paniced and went inroom repostioned patient and reapplied mask and verbally calmed him down and has been resting since. He continues on Precedex at 0.6 mcg/kg/hr. Daughter came by and assisted her with PPE and she was in at bedside for about an hour and was able to communicate with him. No changes to CPAP or gtt's.
--- NOTE | 2020-04-01 14:47 | NUR ---
Increased rounding and medication for agitation. He gets very worked up quickly and is hard to get in room fast enough. He has been doing well with fentanyl and verbal direction. VSS, See EMR. Continues to HE. No changes to CPAP 16 80% FiO2. Gtt remains the same, no other significant changes.
--- NOTE | 2020-04-01 16:30 | NUR ---
Patient currently resting. Family came by outside window and patient awoken and waved. Dr Power by and changed him to BIPAP / 80% and sats >90%, VSS, See EMR. He had 1300 ml light patti colored urine. He had stool and gave bath and changed linen. Precedex remains at 0.6 mcg/kg/hr, Clinimix reduced to 50ml/hr for high potassium, NS TKO
--- NOTE | 2020-04-01 18:36 | NUR ---
Patient has been resting, started fat emulsion and continue Clinimix at 50 ml/hr. His Precedex remains at 0.6 mcg/kg/hr, NS at TKO. VSS, See EMR. No real anxious momnets since placing in BIPAP mode.
--- NOTE | 2020-04-01 20:00 | NUR ---
ASSUMED CARE OF PT AT 1915. REPORT RECEIVED. PT PRESENTS IN BED. WEARING BIPAP MASK TOLERATING THIS WELL AT THIS TIME. PT HAS PRECEDEX AT 0.[address] PT ON Q 2 HOUR TURN AND ORAL CARE PT IS ABLE TO TOLERATE. WILL REVIEW CHART AND PLAN OF CARE FOR THIS PT.
--- NOTE | 2020-04-01 23:06 | NUR ---
MEDICATE PT WITH 1 MG ATIVAN AND FOLLOWED WITH FENTANYL FOR TACHYPNEA DESATURATIONS. GOOD RESULTS. PT TOLERATES Q 2 HOUR TURNS. FAMILY CALLS THIS EVENING FOR UPDATES. PROVIDED CURRENT UPDATES. WILL CONTINUE TO MONITOR PT.
--- NOTE | 2020-04-02 01:58 | NUR ---
MEDS PT WITH RESP RATE IN THE 40'S, BP ELEVATED AND PT GASPING FOR AIR. SPO2 DOWN TO 84%. PT MED WITH FENTANYL 50 MCQ AND ATIVAN 2 MG IV. RESP RATE DOWN TO 22 ON BIPAP AND BP DOWN.
--- NOTE | 2020-04-02 06:30 | NUR ---
PT HAS NEEDED TO BE MEDICATED WITH ATIVAN AND FENTANYL FOR AIR HUNGER AND ANXIOUSNESS. GOOD RESULTS NOTED. PT HAS TOLERATED Q 2 HOUR TURNS IN BED. HAS NEEDED FIO2 TO BE INCREASED TO 100 PERCENT TO MAINTAIN OXYGEN SATURATIONS > 90. PT DESATURATES VERY RAPIDLY IF HIS BIPAP IS DISTURBED. PT MAKES ATTEMPTS TO PULL OFF HIS BIPAP MASK. NEEDS TO BE INSTRUCTED TO NOT PULL AT MASK. WILL CONTINUE TO MONITOR PT, AND WILL REPORT OFF TO ONCOMING RN.
--- NOTE | 2020-04-02 08:00 | NUR ---
Received report from Raulito NUNEZ. Patient resting with minimal stimulation. He is oriented to self,place and family. He is on BIPAP 16/8 100 FiO2 and sats >90%. HE but very weak. He has 16Fr Temp leung in place and draining to gravity. He has intermitent air hunger momnents but with medication and verbal redirection he is able to calm down. He has PowerGlide to GALEN infusing NS TKO and Precedex at 0.6 mcg/kg/hr VSS, See EMR.
--- NOTE | 2020-04-02 10:00 | NUR ---
Patient was doing well and stared flailing around in bed with son at bedside stating he hurts, medicated him for pain and anxiety and verbal redirection he is much calmer. No changes in BIPAP. I increased Precedex to 1.0 as agitation has increased. Dr Power briefly by for update. Son remains at bedside. has shaka admitted for Covid upstairs and called for update. Clinimix remains at 50 ml/hr.
[2020-04-02 11:25] LABS: PO2 Arterial 69.1 mmHg (80-100); pH Blood Arterial 7.42 (7.35-7.45)
[2020-04-02 11:31] LABS: BASOPHILS ABSOLUTE AUTO 0.03 K/mm3 (0.00-0.23); BASOPHILS PERCENT AUTO 0 % (0-2); EOSINOPHILS PERCENT AUTO 0 % (0-6); Hematocrit 39.1 % (37.0-53.0); Hemoglobin 12.9 g/dL (13.5-17.5); IMMATURE GRAN ABSOLUTE AUTO 0.21 K/mm3 (0.00-0.10); IMMATURE GRAN PERCENT AUTO 1 % (0-1); LYMPHOCYTES ABSOLUTE AUTO 0.27 K/mm3 (0.84-5.20); LYMPHOCYTES PERCENT AUTO 2 % (21-46); MONOCYTES ABSOLUTE AUTO 0.32 K/mm3 (0.16-1.47); MONOCYTES PERCENT AUTO 2 % (4-13); Mean Corpuscular HGB 30.7 pg (26.0-34.0); Mean Corpuscular Volume 93 fL (80-100); Mean Platelet Volume 12.2 fL (9.1-12.4); NEUTROPHILS ABSOLUTE AUTO 14.71 K/mm3 (1.96-9.15); NEUTROPHILS PERCENT AUTO 95 % (41-73); RDW Coefficient Variation 13.4 % (11.7-14.2); RDW Standard Deviation 46.1 fL (35.1-46.3); White Blood Cell Count 15.54 K/mm3 (4.00-11.30)
[2020-04-02 11:39] LABS: Platelet Count 66 K/mm3 (150-400)
[2020-04-02 11:49] LABS: Alanine Aminotransfer (ALT/SGP 38 U/L (12-78); Albumin, Blood 1.8 g/dL (3.4-5.0); Albumin/Globulin Ratio 0.4 (0.8-1.8); Alk Phos 130 U/L (50-136); Anion Gap 5 mmol/L (6-16); Aspartate Aminotrans (AST/SGOT 35 U/L (12-37); Bilirubin, Total 0.6 mg/dL (0.1-1.0); Blood Urea Nitrogen 38 mg/dL (8-24); Bun/Creatinine Ratio 42.6 (12.0-20.0); CO2, Blood 29 mmol/L (21-32); Calcium, Blood 8.3 mg/dL (8.5-10.1); Chloride, Blood 102 mmol/L (98-108); Creatinine, Blood 0.89 mg/dL (0.60-1.20); Globulin, Blood 4.2 g/dL (2.2-4.0); Glomerular Filtration Rate >60 (60-); Glucose, Blood 291 mg/dL (70-99); Potassium, Blood 5.6 mmol/L (3.5-5.5); Sodium, Blood 136 mmol/L (136-145)
--- NOTE | 2020-04-02 12:51 | NUR ---
Patient has been resting, medicated for pain with Fentanyl. Dr Power in and making BIPAP settings.RT was in room as well and he is on CPAP 12 90% FiO2 90% and sats 95%. Precedex remains at 1.0 mcg/kg/hr, Clinimix 50 ml/hr, and NS TKO. He opens eye to verbal stimili but really non communicable currently.
--- NOTE | 2020-04-02 13:34 | NUR ---
No significant changes with patient. Dr. Power wants to start Fentanyl gtt at 100 mcg/hr and try to reduce Precedex if HR drops. No changes in CPAP or Gtt's.
--- NOTE | 2020-04-02 16:17 | NUR ---
Patient has been resting quietly. family came by and was at window and patient was awaken and waved briefly at family and was able to keep his eyes open. He has shaka on CPAP for several hours and has been doing better with less distress. I was able to take mask off for several seconds without desating. Started on Fentanyl SUPERVISOR FINISHING DEPARTMENT 100 mcg/hr and will decrese Precedex to effect. Reduced Precedex to 0.6 mcg/kg/kg, Clinimix remains at 50 ml/hr and NS TKO. He is a little more awake when aroused and follow simple commands. He had 1200 ml's of yellow urine from leung.
--- NOTE | 2020-04-02 22:39 | NUR ---
ASSUMED CARE OF PT, REPORT RCV'D FROM ENRIQUE BUSTAMANTE. PT ON CPAP 12, 80% AT START OF SHIFT. PT DESATTING TO 70%, CPAP SETTINGS CHANGED TO 14, 90% AT 1999. LUNG SOUNDS DIM T/O, CRACKLES BILATERAL BASE. PT OPENS EYES SPONTANEOUSLY, DOES NOT VERBALLY RESPOND OR FOLLOWS COMMANDS. PT IN BILATERAL SOFT WRIST RESTRAINTS TO PROTECT LINES/CORDS. PRECEDEX GTT @ 0.6 MCG/KG/HR, FENTANYL SET UP OPERATOR TOOL @ 100 MCG/HR WITH ATIVAN Q2 PER EMAR. SEE FULL SHIFT ASSESSMENT
[2020-04-03 03:45] LABS: BASOPHILS ABSOLUTE AUTO 0.01 K/mm3 (0.00-0.23); BASOPHILS PERCENT AUTO 0 % (0-2); EOSINOPHILS PERCENT AUTO 0 % (0-6); Hematocrit 37.7 % (37.0-53.0); Hemoglobin 12.6 g/dL (13.5-17.5); IMMATURE GRAN ABSOLUTE AUTO 0.13 K/mm3 (0.00-0.10); IMMATURE GRAN PERCENT AUTO 1 % (0-1); LYMPHOCYTES ABSOLUTE AUTO 0.23 K/mm3 (0.84-5.20); LYMPHOCYTES PERCENT AUTO 2 % (21-46); MONOCYTES ABSOLUTE AUTO 0.46 K/mm3 (0.16-1.47); MONOCYTES PERCENT AUTO 3 % (4-13); Mean Corpuscular HGB 31.3 pg (26.0-34.0); Mean Corpuscular HGB Conc 33.4 g/dL (31.5-36.5); Mean Corpuscular Volume 94 fL (80-100); Mean Platelet Volume 12.1 fL (9.1-12.4); NEUTROPHILS ABSOLUTE AUTO 14.15 K/mm3 (1.96-9.15); NEUTROPHILS PERCENT AUTO 94 % (41-73); Platelet Count 70 K/mm3 (150-400); RDW Coefficient Variation 13.4 % (11.7-14.2); RDW Standard Deviation 46.5 fL (35.1-46.3); Red Blood Cell Count 4.03 M/mm3 (4.30-5.90); White Blood Cell Count 14.98 K/mm3 (4.00-11.30)
[2020-04-03 04:00] LABS: Anion Gap 4 mmol/L (6-16); Blood Urea Nitrogen 47 mg/dL (8-24); Bun/Creatinine Ratio 50.1 (12.0-20.0); CO2, Blood 29 mmol/L (21-32); Calcium, Blood 8.3 mg/dL (8.5-10.1); Chloride, Blood 103 mmol/L (98-108); Creatinine, Blood 0.94 mg/dL (0.60-1.20); Glomerular Filtration Rate >60 (60-); Glucose, Blood 266 mg/dL (70-99); Potassium, Blood 5.8 mmol/L (3.5-5.5); Sodium, Blood 136 mmol/L (136-145)
--- NOTE | 2020-04-03 05:24 | NUR ---
SHIFT SUMMARY PT IN NEGATIVE PRESSURE ROOM ICU 11. NO ACUTE CHANGES OVERNIGHT. PT REMAINS ON CPAP 14, 65% WITH SATS>90. PT'S DESATS LOW 50% WHEN CPAP MASK REMOVED EVEN FOR SHORT PERIODS. FIO2 INCREASED TO 100% OCCASIONALLY TO ASSIST PT IN RECOVERING. PT SPONTANEOUSLY OPENS EYES BUT FAILS TO FOLLOW COMMANDS OR ASSIST WITH CARE. PT REMAINS ON PRECEDEX 0.7 MCG/KG/HR, FENTANYL DIRECTOR OF KNOWLEDGE MANAGEMENT @100 MCG/HR. PT AFEBRILE, VSS T/O SHIFT. WILL REPORT TO DAYSHIFT NURSE.
--- NOTE | 2020-04-03 07:00 | NUR ---
ASSUMED CARE FROM ENRIQUE GASPAR. PT LAYING IN BED, W/ ANAND SOFT WRIST RESTRAINTS IN PLACE. AWAKES TO VERBAL STIMULI, FAILS @ FOLLOWING COMMANDS. PT APPEARS LETHARGIC, CLOSES EYES WHEN NOT DISTURBED, DOES NOT TRACK STAFF ACROSS ROOM. CPAP IN PLACE @ 14 W/ 65% FiO2. PT RESP RATE 10-12 @ SHIFT CHANGE, WILL TITRATE SEDATING MEDS FOR RESP RATE 12-16 DISCUSSED W/ DR AGRAWAL. NOTED LABORED BREATHING W/ USE OF ACCESSORY MUSCLES. ORAL CARE PROVIDED, PT DESATs QUICKLY TO LOW 80s, RECOVERS QUICKLY. LS COARSE THROUGHOUT, DIMINISHED IN THE BASES. PT NPO D/T CPAP DEPENDENCE & ASPIRATION RISK. ABD SOFT, NONTENDER, BS HYPOACTIVE. COSTELLO IN PLACE & DRAINING TO GRAVITY W/ YELLOW OUTPUT NOTED. BP STABLE. SINUS RHYTHM IN THE 60s. PRECEDEX INF @ 0.7mcg/kg/hr, FENTANYL @ 100mcg/HR. WILL TITRATE BASED ON SEDATION/RESP RATE/HR. CLINDAMIX INF @ 50ml/hr. WILL CONTINUE TO MONITOR.
--- NOTE | 2020-04-03 17:49 | NUR ---
SHIFT SUMMARY: PT REMAINS ON CPAP @ 14 & 65%. LS REMAIN UNCHANGED, PT CONTIUES TO DESAT ANYTIME MASK IS REMOVED, INCLUDING DURING ORAL CARE, RECOVERS QUICKLY. RT ADJUSTED MASK & CHANGED MASK SEVERAL TIMES, ATTEMPTING A BETTER FIT. O2 SATS >92% WHEN MASK IS IN PLACE. PRECEDEX INF @ 0.7mcg/kg/hr, & FENTANYL @ 50mcg/hr. NEURO ASSESSMENT UNCHANGED, RESPONDS TO VERBAL STIMULI BUT FAILS @ FOLLOWING COMMANDS. CONTINUES TO BE NPO, CLINDAMIX INFUSING. COSTELLO PATENT & DRAINING CLEAR YELLOW OUTPUT TO GRAVITY. BP STABLE. FAMILY UPDATED & FAMILY WINDOW COMPLETED THIS SHIFT. BED BATH COMPLETE. 1 LOOSE BM THIS SHIFT. WILL CONTINUE TO MONITOR UNTIL REPORT TO ONCOMING RN.
--- NOTE | 2020-04-03 20:23 | NUR ---
ASSUMED CARE OF PT, REPORT RCV'D FROM ENRIQUE THOMPSON. PT IN NEGATIVE PRESSURE ICU 11. PT ON CPAP 14, 65% WITH SATS>90%. PT OPENS EYES SPONTANEOUSLY, FAILS TO FOLLOW COMMANDS. MOANS BUT NO VERBAL RESPONSE TO QUESTIONS. PT REMAINS IN BILATERAL SOFT WRIST RESTRAINTS TO PROTECT VITAL LINES AND CPAP PLACEMENT. PRECEDEX GTT @0.7 MCG/KG/HR AND FENTANYL GTT @ 50 MCG/HR. PT AFEBRILE, VSS AT THIS TIME. SEE FULL SHIFT ASSESSMENT.
--- NOTE | 2020-04-03 21:49 | NUR ---
PT PUSHING MASK OFF WITH CHIN CAUSING CPAP TO DISCONNECT AND/OR CREATE AIR LEAK. INCREASED PRECEDEX TO 1 MCG/KG/HR TO ASSIST WITH ANXIETY.
--- NOTE | 2020-04-04 02:46 | NUR ---
SEDATION VACATION FENTANYL GTT AND PRECEDEX PLACE ON STANDBY AT 0130. PT MAINTAINED SATS>90% WITH CPAP SETTINGS 14, 60%. 0145 PT BECOMES AGITATED AND IS MOVING HEAD BACK/FORTH MOANING. PT ABLE TO FOLLOW COMMANDS TO SQUEEZE HANDS BILATERALLY. MASK BRIEFLY REMOVED TO MOISTEN PT'S MOUTH. PT'S SATS DROPPED TO 80% BUT RECOVERED QUICKLY. 0215 FENTANYL GTT RESTARTED @ 50 MCG/HR AFTER PT'S RESPIRATORY RATE INCREASED TO MID 50'S AND PT CLEARLY UNCOMFORTABLE AND AGITATED. PT REORIENTED OFTEN AND ENCOURAGED TO FOCUS ON BREATHING. PT CONTINUED TO MOAN, PULLING HARD ON RESTRAINTS AND KICKING LEGS. PRECEDEX RESTARTED AT 0.3 MCG/KG/HR AT 0230, PRECEDEX CURRENTLY AT 0.6 MCG/KG/HR. PT RESTING COMFORTABLY, RR 36, SPO2 93%.
[2020-04-04 03:27] LABS: BASOPHILS ABSOLUTE AUTO 0.02 K/mm3 (0.00-0.23); BASOPHILS PERCENT AUTO 0 % (0-2); EOSINOPHILS ABSOLUTE AUTO 0.01 K/mm3 (0.00-0.68); EOSINOPHILS PERCENT AUTO 0 % (0-6); Hematocrit 38.7 % (37.0-53.0); Hemoglobin 12.7 g/dL (13.5-17.5); IMMATURE GRAN ABSOLUTE AUTO 0.16 K/mm3 (0.00-0.10); IMMATURE GRAN PERCENT AUTO 1 % (0-1); LYMPHOCYTES PERCENT AUTO 2 % (21-46); MONOCYTES ABSOLUTE AUTO 0.35 K/mm3 (0.16-1.47); MONOCYTES PERCENT AUTO 2 % (4-13); Mean Corpuscular HGB 30.9 pg (26.0-34.0); Mean Corpuscular HGB Conc 32.8 g/dL (31.5-36.5); Mean Corpuscular Volume 94 fL (80-100); Mean Platelet Volume 12.2 fL (9.1-12.4); NEUTROPHILS ABSOLUTE AUTO 15.56 K/mm3 (1.96-9.15); NEUTROPHILS PERCENT AUTO 94 % (41-73); Platelet Count 81 K/mm3 (150-400); RDW Coefficient Variation 13.2 % (11.7-14.2); RDW Standard Deviation 46.1 fL (35.1-46.3); Red Blood Cell Count 4.11 M/mm3 (4.30-5.90)
[2020-04-04 03:44] LABS: Anion Gap 3 mmol/L (6-16); Blood Urea Nitrogen 52 mg/dL (8-24); Bun/Creatinine Ratio 54.4 (12.0-20.0); CO2, Blood 31 mmol/L (21-32); Calcium, Blood 8.3 mg/dL (8.5-10.1); Chloride, Blood 103 mmol/L (98-108); Creatinine, Blood 0.96 mg/dL (0.60-1.20); Glomerular Filtration Rate >60 (60-); Glucose, Blood 196 mg/dL (70-99); Magnesium, Blood 2.6 mg/dL (1.6-2.4); Phosphorus, Blood 4.1 mg/dL (2.5-4.9); Potassium, Blood 5.6 mmol/L (3.5-5.5); Sodium, Blood 137 mmol/L (136-145)
--- NOTE | 2020-04-04 05:40 | NUR ---
PT REMAINS ON CPAP 14, 55% WITH SATS>90%. PT EASILY AROUSABLE AND AGITATED MOANING, PULLING ON RESTRAINTS AND KICKING LEGS. PRECEDEX INFUSING AT 1.2 MCG/KG/MIN, FENTANYL GTT @ 50 MCG/HR. (SEE PREVIOUS NOTE REGARDING SEDATION VACATION). PT AFEBRILE T/O SHIFT, VSS. WILL REPORT TO DAYSHIFT NURSE.
--- NOTE | 2020-04-04 07:03 | NUR ---
Received report from Blaise NUNEZ. Patient was anxious at report and is starting to calm. He is on CPAP 14 and 55% with sats 91%. He has PowerGlide to JEANETH, dressing intact and site WNL's and is infusing NS TKO and Precedex 1.4 mcg/kg/hr and Fentayl at 50 mcg/hr and seems to be appropriate. He has Clinimix at 50ml/hr. He has temp leung draining to gravity light ambecolored urine. His temporal temp is 97.9. Reposition and replaced bilateral soft wrist restraints. Just changed Fentanyl lavatory attendant cartridge. HE, good stregnth upper extremities.
--- NOTE | 2020-04-04 09:25 | NUR ---
Patient was anxious and was medicated with 2mg Ativan and is currently doing better. There are no chnages to CPAP 14 FiO2 55% and sats 92%. No changes with gtt's Precedex 1.4 mcg/kg/hr, Fentanyl 50 mcg/hr and Clinimix 50 ml/hr and currenrtly Rocephen. Fabian draining to gravity light patti colored urine. Opens eyes to verbal stimuli.
--- NOTE | 2020-04-04 10:05 | NUR ---
ASSUMED CARE: REPORT RECEIVED FROM DIANNA Moreno RN. ASSUMED CARE OF THIS PT AT APPROX 1000 TO COVER PRIMARY RN FOR PART OF THIS SHIFT. THE PT IS RESTING QUIETLY & TOLERATING CPAP 14 & 55% FIO2 WELL W/ O2 SATS > 92%. MONITOR SHOW SB-SR W/ HR 40-60s, BP STABLE. BILAT SOFT WRIST RESTRAINTS IN PLACE TO PREVENT REMOVAL OF CPAP. FREQUENT RN ROUNDING. WILL CONTINUE TO MONITOR & UPDATE NEEDED.
--- NOTE | 2020-04-04 10:50 | NUR ---
DR DAMON: PROVIDER AT BEDSIDE TO EVAL THE PT. NO CHANGES AT THIS TIME. HE PLANS TO CONTINUE SEEING THIS PT PERIPHERALLY BUT FOR VICE PRESIDENT OF MARKETING SERVICE TO BE PRIMARILY MANAGING PT CARE.
--- NOTE | 2020-04-04 13:40 | NUR ---
DR MATHEW: PROVIDER AT BEDSIDE THIS AFTERNOON TO [place] PT. ON ASSESSMENT, SHE IS CONCERNED THAT THE PT IS MAKING NO SPONTANEOUS MOVEMENT OF EXTREMITIES & NO WITHDRAWING FROM PAINFUL STIMULI. SHE REQUESTS THAT SEDATION BE LIGHTENED TO DETERMINE IF THE PT WILL BE NEEDING A HEAD CT. PRECEDEX DOSE DECREASED TO 1.0 MCG/KG/HR AT THAT TIME. APPROX 1HR HAS PASSED SINCE THAT TIME & THE PT IS NOW MOVING ALL EXTREMITIES SPONTANEOUSLY WHEN AWAKENED BY VERBAL STIMULUS. WILL UPDATE PROVIDER. NO OTHER CHANGES AT THIS TIME.
--- NOTE | 2020-04-04 15:40 | NUR ---
Resumed care of patient. Repositioned pation and place patient facing window in bed so that family could see him. They were able to talk to him on phone through window. Updated family with information. VSS, See EMR. No chnages in gtts or cpap. He remains on Precedex at 1.0 mcg/kg/hr and Fentanyl at 50mcg/hr and Clinimix at 50 ml hr. CPAP 14 and FiO2 55% and sats >90%. He arouses to verbal stimuli. He remains in Bilateral soft wrist restraints.
--- NOTE | 2020-04-04 17:16 | NUR ---
update on pt today with staff. family had repeat confrence call yesterday with intesivist.
--- NOTE | 2020-04-04 17:35 | NUR ---
Patient is resting quietly on CPAP 14, FiO2 55% and sats 97%. Family was by outside window and after leaving Dr Gonzales talked with Daughter Rachel and gave update. He has been resting since. Precedex reamins at 1.0 mcg/kg/hr, Fentanyl 50 mcg/hr, Changed Clinimix to PPN at 96 ml/hr NS TKO. He awakens to verbal stimuli and follows simple commands. Repositioned and oral care done.
--- NOTE | 2020-04-04 19:48 | NUR ---
ASSUMED CARE OF PT, REPORT RCV'D FROM ENIRQUE BUSTAMANTE. PT OPENS EYES TO VERBAL STIMULI, FAILS TO FOLLOW COMMANDS AT THIS TIME D/T SEDATION. PT REMAINS ON CPAP 14, 45% WITH SATS>90%. PRECEDEX @1 MCG/KG/HR, FENTANYL GTT @ 50 MCG/HR. PT AFEBRILE AND VSS AT THIS TIME. SEE FULL SHIFT ASSESSMENT.
[2020-04-05 04:14] LABS: BASOPHILS ABSOLUTE AUTO 0.03 K/mm3 (0.00-0.23); BASOPHILS PERCENT AUTO 0 % (0-2); EOSINOPHILS ABSOLUTE AUTO 0.01 K/mm3 (0.00-0.68); EOSINOPHILS PERCENT AUTO 0 % (0-6); Hematocrit 40.9 % (37.0-53.0); Hemoglobin 13.4 g/dL (13.5-17.5); IMMATURE GRAN ABSOLUTE AUTO 0.16 K/mm3 (0.00-0.10); IMMATURE GRAN PERCENT AUTO 1 % (0-1); LYMPHOCYTES ABSOLUTE AUTO 0.39 K/mm3 (0.84-5.20); LYMPHOCYTES PERCENT AUTO 2 % (21-46); MONOCYTES ABSOLUTE AUTO 0.47 K/mm3 (0.16-1.47); MONOCYTES PERCENT AUTO 3 % (4-13); Mean Corpuscular HGB 30.7 pg (26.0-34.0); Mean Corpuscular HGB Conc 32.8 g/dL (31.5-36.5); Mean Corpuscular Volume 94 fL (80-100); Mean Platelet Volume 12.1 fL (9.1-12.4); NEUTROPHILS ABSOLUTE AUTO 18.07 K/mm3 (1.96-9.15); NEUTROPHILS PERCENT AUTO 94 % (41-73); Platelet Count 105 K/mm3 (150-400); RDW Coefficient Variation 13.1 % (11.7-14.2); RDW Standard Deviation 45.3 fL (35.1-46.3); Red Blood Cell Count 4.36 M/mm3 (4.30-5.90); White Blood Cell Count 19.13 K/mm3 (4.00-11.30)
[2020-04-05 04:49] LABS: Anion Gap 6 mmol/L (6-16); Blood Urea Nitrogen 50 mg/dL (8-24); Bun/Creatinine Ratio 60.8 (12.0-20.0); CO2, Blood 28 mmol/L (21-32); Chloride, Blood 101 mmol/L (98-108); Creatinine, Blood 0.82 mg/dL (0.60-1.20); Glomerular Filtration Rate >60 (60-); Glucose, Blood 314 mg/dL (70-99); Magnesium, Blood 2.3 mg/dL (1.6-2.4); Phosphorus, Blood 3.4 mg/dL (2.5-4.9); Potassium, Blood 5.2 mmol/L (3.5-5.5); Sodium, Blood 135 mmol/L (136-145); Triglycerides 205 mg/dL (30-160)
[2020-04-05 05:13] LABS: PCO2 Arterial 40.3 mmHg (35-45); PO2 Arterial 65.1 mmHg (80-100); pH Blood Arterial 7.41 (7.35-7.45)
--- NOTE | 2020-04-05 06:03 | NUR ---
SHIFT SUMMARY PT DID WELL OVERNIGHT. CPAP REMAINS UNCHANGED 14, 50%. PRECEDEX TITRATED DOWN TO 0.5 MCG/KG/HR, FENTANYL GTT @ 50 MCG/HR. PT MEDICATED WITH ZYPREXA AND ATIVAN PER EMAR WITH GOOD RESULT. PT IS LESS AGITATED THAN PREVIUS SHIFT AND SEEMS MUCH MORE AROUSABLE TO STIMULI. PT FOLLOWS COMMANDS (SQUEEZED HANDS BILATERALLY), NO RESPONSE VERBALLY, PT YELLS/MOANS ON OCCASION. TRIALED PT OUT OF RESTRAINTS AND DID RANGE OF MOTION EXERCISES. PT DID WELL FOR SHORT PERIOD OF TIME AND THEN BEGAN TRYING TO TAKE CPAP MASK OFF. RESTRAINTS REAPPLIED. VSS T/O SHIFT. WILL REPORT TO DAYSHIFT NURSE.
--- NOTE | 2020-04-05 07:43 | NUR ---
Received report from Blaise NUNEZ. Patient resting with HOB at 30 degrees on right side. Patient is on CPAP 14 FiO2 50% and sats 92%. He has Powerglide GALEN and dressing intact and site WNL's and is infusing NS TKO, Precedex at 0.5 mcg/kg/hr, Fentanyl 50 mcg/hr. He also has a 20ga IV in LW that is infusin PPN at 96ml/hr. He has 16Fr Fabian draining to gravity light patti colored urine. He opens eye to loud verbal stimuli and follows simple commands.
--- NOTE | 2020-04-05 10:06 | NUR ---
Dr Morley was in rom and was evaluating patient. Plane for day is up in chair and multiple attemps to try AirVo. He is calm and gtts currently Precedex 0.5 mcg/kg/hr, Fentanyl 50 mcg/kg/hr, Zyprexa, PPN at 96 ml/hr, NS TKO. Dr Morley made adjustments to CPAP 12 50% FiO2 sats 91%. Fabian patent.
--- NOTE | 2020-04-05 11:37 | NUR ---
Placed patient in chair and started to desat and increased FiO2 to 70% and now have decreased back down to 50%. He tolerated poorly and also medicated prior to transfer with 2 mg Ativan. He is currently resting sitting up in chair.No changes to gtt's: Fentanyl 50 mcg/hr, Precedex 0.5 mcg/kg.hr, PPN at 96 ml/hr, NS TKO. Placed rectal tube for ongoing liguid stool, notified Dr Morley. Linen changed.
--- NOTE | 2020-04-05 12:26 | NUR ---
Reviw of pt with nursing pt up in chair today.
--- NOTE | 2020-04-05 13:15 | NUR ---
Patient continues to rest, no significant changes with patient CPAP FiO2 at 55%. All other settings and gtt's remain unchanged. Rectal tube has brown liquid output. Fabian patent and has light patti output.
--- NOTE | 2020-04-05 16:00 | NUR ---
Patient was placed back in bed. Family canme by and was at window, patient rested mostly whole time on CPAP 12 55%. RT by and placed on AirVo 60L 70% and sats >90%. VSS, See EMR. He continues to open eyes to verbal stimuli with repeated talking, but has no verbal response and follows minimal simple commands. Rectal tube continues to leak brown liquid stool and leung with moderate amounts of light patti colored urine.
--- NOTE | 2020-04-05 20:00 | NUR ---
ASSESSMENT/ASSUMED CARE PT RESTING QUIELTY WITH AIRVO ON AT 60 L 70%. LUNGS DECREASED THROUGHOUT. HEART RATE 90-100'S. BP STABLE. BT+ ABD SOFT. RECTAL TUBE TO GRAVITY. POWER GLIDE TO RIGHT UPPER ARM WITH FENTANYL AIRFIELD DEFENCE GUARD AT 50 MCQ WITH NS AT 10 ML/HR, SITE CLEAR. IV LEFT WRIST/FOREARM WITH PPN AT 96 ML/HR, SITE CLEAR. COSTELLO CATH PATENT DRAINING CLEAR YELLOW URINE. PT REPOSITIONED WITH LIFT TO RIGHT SIDE.
--- NOTE | 2020-04-05 20:49 | NUR ---
SPO2 SPO2 DOWN TO 79% AFTER TURNING SLIGHTLY TO LEFT SIDE. RT INCREASED AIRVO TO 60L AND 93%. SPO2 UP TO 87% THAN BACK DOWN TO 83%. RT CALLED TO PLACE PT ON CPAP.
--- NOTE | 2020-04-05 21:00 | NUR ---
CPAP RT PLACED PT ON CPAP 12 85%.
[2020-04-06 06:13] LABS: BASOPHILS ABSOLUTE AUTO 0.03 K/mm3 (0.00-0.23); BASOPHILS PERCENT AUTO 0 % (0-2); EOSINOPHILS ABSOLUTE AUTO 0.15 K/mm3 (0.00-0.68); EOSINOPHILS PERCENT AUTO 1 % (0-6); Hematocrit 39.7 % (37.0-53.0); IMMATURE GRAN ABSOLUTE AUTO 0.15 K/mm3 (0.00-0.10); IMMATURE GRAN PERCENT AUTO 1 % (0-1); LYMPHOCYTES PERCENT AUTO 2 % (21-46); MONOCYTES ABSOLUTE AUTO 0.46 K/mm3 (0.16-1.47); MONOCYTES PERCENT AUTO 2 % (4-13); Mean Corpuscular HGB 30.4 pg (26.0-34.0); Mean Corpuscular HGB Conc 32.7 g/dL (31.5-36.5); Mean Corpuscular Volume 93 fL (80-100); NEUTROPHILS ABSOLUTE AUTO 18.06 K/mm3 (1.96-9.15); NEUTROPHILS PERCENT AUTO 94 % (41-73); Platelet Count 121 K/mm3 (150-400); RDW Coefficient Variation 13.2 % (11.7-14.2); RDW Standard Deviation 45.3 fL (35.1-46.3); Red Blood Cell Count 4.28 M/mm3 (4.30-5.90); White Blood Cell Count 19.25 K/mm3 (4.00-11.30)
[2020-04-06 06:35] LABS: Anion Gap 6 mmol/L (6-16); Blood Urea Nitrogen 60 mg/dL (8-24); Bun/Creatinine Ratio 60.2 (12.0-20.0); CO2, Blood 28 mmol/L (21-32); Chloride, Blood 102 mmol/L (98-108); Glomerular Filtration Rate >60 (60-); Glucose, Blood 175 mg/dL (70-99); Magnesium, Blood 2.4 mg/dL (1.6-2.4); Potassium, Blood 4.9 mmol/L (3.5-5.5); Sodium, Blood 136 mmol/L (136-145)
--- NOTE | 2020-04-06 07:05 | NUR ---
SHIFT SUMMARY PT RESTING QUIETLY. OPENS EYES TO VERBAL AND FOLLOWS SOME INSTRUCTIONS. PT PLACE BACK ON CPAP DUE TO INCREASED RESP AND DECREASED SPO2. LUNGS DECREASED THROUGHOUT. HEART RATE REGULAR. BP STABLE. LOW BP NOTED AFTER ATIVAN GIVEN. BT+ ABD ROUND. FLEXI SEAL WITH LIQUID STOOL IN TUBE. COSTELLO CATH PATENT AND DRAINING. PT TURNED Q2HR. IV TO LEFT WRIST/FOREARM LEAKING THIS AM, REMOVED WITHOUT DIFFICULTY. UNABLE TO PLACE NEW IV. PASSED ON TO DAY SHIFT RN. REPORT TO ON COMING NURSE
--- NOTE | 2020-04-06 08:00 | NUR ---
ASSUMMED CARE OF PT. PT IS RESTING QUIETY IN BED, CPAP 12 FIO2 85% CURRENTLY IN PLACE. POWERGLIDE IN PLACE INFUSING PRECEDEX, NS TKO, AND FENTYNAL. OTHER IV WENT BAD ON NOC SHIFT AND NEW LINE WAS UNSUCCESSFUL. WILL COORDINATE TO HAVE ANOTHER LINE PLACED. COSTELLO IS PATENT AND DRAINING YELLOW URINE. PT REPOSITIONED TO LEFT SIDE WITH CEILING LIFT.
--- NOTE | 2020-04-06 15:24 | NUR ---
SPO2 DROPPRED TO LOW 80'S AND PT BECAME TACHYPNIC WITH RR 40'S. PT PLACED ON CPAP AND PRN ATIVAN GIVEN FOR AXIETY. PT'S SPO2 INCREASED IMMEDIATELY AND RR HAS SLOWLY IMPROVED. PT REPOSITIONED FOR COMFORT. NEW IV PLACED AND PPN RESTARTED.
--- NOTE | 2020-04-06 18:13 | NUR ---
SHIFT SUMMARY PT TOLERATED AIRVO FOR ABOUT 8 HOURS. SPO2 DROPPED AND RR INCREASED AND PT WAS PLACED ONTO CPAP WITH GOOD RESPONSE. PRECEDEX, FENTYNAL, AND PPN CONTINUE TO INFUSE. PT ALERT AT TIMES, WASN'T VERY INTERACTIVE WITH STAFF. COSTELLO IN PLACE, PATENT AND DRAINING SUFFICANT URINE. RECTAL TUBE IN PLACE, WITH LIQUED BROWN STOOL, SMALL AMOUNT DRAINED TODAY. OTHER VITALS HAVE BEEN STABLE. MONITOR HAS SHOWN PT TO BE SINUS RHYTHM/TACH TODAY.
--- NOTE | 2020-04-06 19:58 | NUR ---
ASSUMED CARE PT RESPONDS TO VERBAL; MOVES LOWER EXTREMITIES; VSS; NSR NOTED ON MONITOR; PPN INFUSING; FENTANYL DIRECTOR DERMATOLOGY, TKO, AND PRECEDEX CONTINUING; COSTELLO PATENT & DRAINING; FLEXI SEAL IN PLACE W/ STOOL DRAINING APPROPRIATELY; WILL CONTINUE TO MONITOR CLOSELY
[2020-04-07 03:44] LABS: BASOPHILS ABSOLUTE AUTO 0.02 K/mm3 (0.00-0.23); BASOPHILS PERCENT AUTO 0 % (0-2); EOSINOPHILS ABSOLUTE AUTO 0.08 K/mm3 (0.00-0.68); EOSINOPHILS PERCENT AUTO 0 % (0-6); Hematocrit 36.2 % (37.0-53.0); Hemoglobin 11.7 g/dL (13.5-17.5); IMMATURE GRAN ABSOLUTE AUTO 0.09 K/mm3 (0.00-0.10); IMMATURE GRAN PERCENT AUTO 1 % (0-1); LYMPHOCYTES ABSOLUTE AUTO 0.26 K/mm3 (0.84-5.20); LYMPHOCYTES PERCENT AUTO 1 % (21-46); MONOCYTES ABSOLUTE AUTO 0.43 K/mm3 (0.16-1.47); MONOCYTES PERCENT AUTO 2 % (4-13); Mean Corpuscular HGB 31.1 pg (26.0-34.0); Mean Corpuscular HGB Conc 32.3 g/dL (31.5-36.5); Mean Corpuscular Volume 96 fL (80-100); Mean Platelet Volume 12.2 fL (9.1-12.4); NEUTROPHILS PERCENT AUTO 96 % (41-73); Platelet Count 131 K/mm3 (150-400); RDW Coefficient Variation 13.3 % (11.7-14.2); RDW Standard Deviation 47.9 fL (35.1-46.3); Red Blood Cell Count 3.76 M/mm3 (4.30-5.90); White Blood Cell Count 19.38 K/mm3 (4.00-11.30)
[2020-04-07 04:01] LABS: Anion Gap 7 mmol/L (6-16); Blood Urea Nitrogen 73 mg/dL (8-24); Bun/Creatinine Ratio 68.9 (12.0-20.0); CO2, Blood 27 mmol/L (21-32); Calcium, Blood 7.7 mg/dL (8.5-10.1); Chloride, Blood 98 mmol/L (98-108); Creatinine, Blood 1.06 mg/dL (0.60-1.20); Glomerular Filtration Rate >60 (60-); Glucose, Blood 372 mg/dL (70-99); Magnesium, Blood 2.8 mg/dL (1.6-2.4); Potassium, Blood 5.7 mmol/L (3.5-5.5); Sodium, Blood 132 mmol/L (136-145)
[2020-04-07 04:02] LABS: Phosphorus, Blood 7.2 mg/dL (2.5-4.9)
--- NOTE | 2020-04-07 04:52 | NUR ---
SHIFT SUMMARY PT RESPONDS PAINFUL STIMULI; VSS; NSR NOTED ON MONITOR; O2 SATS >93 ON CPAP SETTINGS W/ 75% FIO2; NO DISTRESS NOTED; Q2 TURNS PROVIDED; COSTELLO PATENT & DRAINING; FLEXI SEAL DRAINING LIQUID GREEN/BROWN STOOL; TPN INFUSING; FENTANYL PIPE STRIPPER IN PLACE; PRECEDEX @ 0.3; CALL LIGHT IN REACH; BED IN LOWEST POSITION; WILL CONTINUE TO MONITOR CLOSELY UNTIL HAND OFF TO DAY SHIFT RN.
--- NOTE | 2020-04-07 08:00 | NUR ---
pt laying in bed with eyes closed, he is currently sedated, lungs are dim t/o, currently on bipap, resp even and unlabored at rest, no cough noted, does become fast and labored when moving pt., hrr, tele in place running sr per monitor, see strip, edema noted to b/l hands, not to feet, ppp+2, cap refill <3sec, vs stable, afebrile, iv sites are clear and patent, ruarm is powerglide, btx4, abd flat soft nontender, voids via leung cath clear yellow, rectal tube in place draining brown stool, skin c/w/d, soft wrist restraints in place, very stiff, brandy, call light in reach.
--- NOTE | 2020-04-07 12:28 | NUR ---
pt has been repositioned, blood sugar in over 200 will cover, gave a sedation break for half an hr, did begin to get agitated after 25 mins, turned the precidex back on at 0.3mg/kg, call light in reach.
--- NOTE | 2020-04-07 15:18 | NUR ---
PT RESTING QUIETLY, NOT AGITATED AT THIS TIME, V.S. STABLE, AFEBRILE, NO ACUTE CHANGES. CALL LIGHT IN REACH.
[2020-04-07 18:11] LABS: Source, Urine Catheter
[2020-04-07 18:19] LABS: Appearance, Urine Clear (Clear); Bilirubin, Urine Neg (Neg); Blood, Urine 2+ (Neg); Color, Urine Yellow (P-Yellow); Glucose Qualitative, Urine Neg (Neg); Ketones, Urine Neg (Neg); Leukocyte Esterase, Urine Neg (Neg); Nitrite, Urine Neg (Neg); Protein, Urine 1+ (Neg); Urobilinogen, Urine NORM (Normal)
--- NOTE | 2020-04-07 18:44 | NUR ---
pt was placed on an airvo at 60liters, 88%, oral care done, pt has been turned thoughout the day, no signs of distress at this time. call light in reach.
[2020-04-07 19:17] LABS: Amorphous Mod (0-Heavy); Bacteria Few /hpf; Mucus Light (0-Heavy); Squamous Epithelial Cells Not Seen /hpf (Few); Transitional Epithelial Cells Rare /hpf (0-Rare); White Blood Cells, Urine 0-2 /hpf (0-5)
--- NOTE | 2020-04-07 19:29 | NUR ---
ASSUMPTION OF CARE RECEIVED REPORT FROM HAJA NUNEZ. ASSUMED CARE OF PATIENT AT 1915. PATIENT ON AIRVO, SATS IN THE LOW 80S. PATIENT CALLING OUT, UNABLE TO REDIRECT. RT TO ROOM, PLACED ON BIPAP FIO2 80%. INCREASED PRECEDEX TO 0.4 MCG/KG/HR. SATS INCREASED TO 94%, PATIENT SLOWLY CALMING.
--- NOTE | 2020-04-08 | NUR ---
RE-ASSESSMENT NO ACUTE CHANGES FROM INITIAL ASSESSMENT. CONTINUING TO TITRATE PRECEDEX FOR ANXIETY AND COMFORT. BIPAP IN PLACE WITH FIO2 70%. SATS ABOVE 90%. WILL CONTINUE TO MONITOR.
--- NOTE | 2020-04-08 04:00 | NUR ---
RE-ASSESSMENT NO ACUTE CHANGES FROM PREVIOUS ASSESSMENT. BIPAP IN PLACE WITH FIO2 AT 70%. PRECEDEX AT 0.9MCG/KG/HR. PATIENT WITH EYES CLOSED, NO S/S OF DISTRESS. VITALS STABLE CHARTED.
[2020-04-08 04:15] LABS: BASOPHILS ABSOLUTE AUTO 0.01 K/mm3 (0.00-0.23); BASOPHILS PERCENT AUTO 0 % (0-2); EOSINOPHILS ABSOLUTE AUTO 0.16 K/mm3 (0.00-0.68); EOSINOPHILS PERCENT AUTO 1 % (0-6); Hematocrit 31.2 % (37.0-53.0); Hemoglobin 10.2 g/dL (13.5-17.5); IMMATURE GRAN ABSOLUTE AUTO 0.09 K/mm3 (0.00-0.10); IMMATURE GRAN PERCENT AUTO 1 % (0-1); LYMPHOCYTES ABSOLUTE AUTO 0.19 K/mm3 (0.84-5.20); LYMPHOCYTES PERCENT AUTO 1 % (21-46); MONOCYTES PERCENT AUTO 2 % (4-13); Mean Corpuscular HGB 31.1 pg (26.0-34.0); Mean Corpuscular HGB Conc 32.7 g/dL (31.5-36.5); Mean Corpuscular Volume 95 fL (80-100); NEUTROPHILS ABSOLUTE AUTO 13.98 K/mm3 (1.96-9.15); NEUTROPHILS PERCENT AUTO 95 % (41-73); RDW Coefficient Variation 13.2 % (11.7-14.2); RDW Standard Deviation 46.7 fL (35.1-46.3); Red Blood Cell Count 3.28 M/mm3 (4.30-5.90); White Blood Cell Count 14.73 K/mm3 (4.00-11.30)
[2020-04-08 04:17] LABS: Mean Platelet Volume 11.7 fL (9.1-12.4); Platelet Count 129 K/mm3 (150-400)
[2020-04-08 04:34] LABS: Alanine Aminotransfer (ALT/SGP 46 U/L (12-78); Albumin, Blood 1.2 g/dL (3.4-5.0); Albumin/Globulin Ratio 0.3 (0.8-1.8); Alk Phos 79 U/L (50-136); Anion Gap 6 mmol/L (6-16); Aspartate Aminotrans (AST/SGOT 60 U/L (12-37); Bilirubin, Total 0.4 mg/dL (0.1-1.0); Blood Urea Nitrogen 63 mg/dL (8-24); Bun/Creatinine Ratio 77.8 (12.0-20.0); CO2, Blood 28 mmol/L (21-32); Calcium, Blood 7.3 mg/dL (8.5-10.1); Chloride, Blood 104 mmol/L (98-108); Creatinine, Blood 0.81 mg/dL (0.60-1.20); Globulin, Blood 3.7 g/dL (2.2-4.0); Glomerular Filtration Rate >60 (60-); Glucose, Blood 235 mg/dL (70-99); Magnesium, Blood 2.3 mg/dL (1.6-2.4); Potassium, Blood 4.1 mmol/L (3.5-5.5); Sodium, Blood 138 mmol/L (136-145); Total Protein, Blood 4.9 g/dL (6.4-8.2)
[2020-04-08 04:40] LABS: Phosphorus, Blood 1.9 mg/dL (2.5-4.9)
--- NOTE | 2020-04-08 06:22 | NUR ---
SHIFT SUMMARY PATIENT REMAINS DISORIENTED, MOANING FREQUENTLY, DOES NOT RESPOND TO VERBAL DIRECTIONS OR FOLLOW COMMANDS. DID NOT TOLERATE BREAKS FROM BIPAP OR AIRVO FOR LONG PERIODS OF TIME. CURRENTLY ON CPAP 12 WITH FIO2 80% SATS 88-91%. PRECEDEX INFUSING AT 1MCG/KG/HR, FENTANYL CONTINUOUS AT 35MCG/HR PPN INFUSING ORDERED, REPORTED PATIENT'S PHOSPHOROUS LEVEL TO DR. MATHEW AND RECEIVED NEW ORDERS. MEDICATION INFUSING ORDERED. COSTELLO AND RECTAL TUBE TO GRAVITY. WILL CONTINUE TO MONITOR AND GIVE REPORT TO ONCOMING RN.
--- NOTE | 2020-04-08 06:31 | NUR ---
O2 SATS 02 SATS BELOW 85% AND SUSTAINING. DECREASED PRECEDEX TO 0.8 MCG/KG/HR AND INCREASED FIO2 TO 85% ON BIPAP. WILL MONITOR.
--- NOTE | 2020-04-08 10:47 | NUR ---
AM NOTE... ASSUMED CARE OF PT APROX 0700, PT IS ON CPAP AT 85% FIO2 WITH SATS AT 91%. PT WAKES TO VERBAL STIMULI BUT DOES NOT FOLLOW COMMANDS AND HE IS NOT TRACKING WITH HIS EYES AT THIS TIME. PT'S OTHER VS STABLE. L/S CLEAR IN THE UPPER LOBES WTIH FINE CRACKLES NOTED IN THE RIGHT MID TO LOWER BASE AND LEFT LOWER BASE. BT PRESENT BUT HYPOACTIVE, ABD IS SOFT AND NONTENDER TO PALP. PT HAS 2+ PITTING EDEMA TO HIS LEFT HAND, 1+ TO HIS RIGHT HAND AND 1+ TO HIS BLE. COSTELLO PATENT AND DRAINING DARK YELLOW URINE TO GRAVITY. RECTAL TUBE IS PATENT AND HAS SMALL AMOUNT OF BROWN LIQUID STOOLS. PT IS CONFUSED AND ANXIOUS MOANING AND YELLING OUT ATTEMPTING TO PULL OFF HIS CPAP MASK. PT'S DAUGHTER APRIL CALLED THIS RN AND WAS UPDATED ON CURRENT CONDITION AND PLAN OF CARE FOR THE DAY. WILL CONTINUE TO MONITOR.
--- NOTE | 2020-04-08 12:13 | NUR ---
PT UPDATE... PT HAD SLID DOWN THE BED ENOUGH TO GRAB THE CPAP TUBE AND PULL IT PART WAY OFF HIS FACE, PT'S SATS THEN BEGAN TO DROP RAPIDLY. RT WAS THE FIRST INTO THE ROOM WITH THIS O2 SATS DOWN TO THE 40%'S, PT'S FIO2 WAS INCREASED TO 100%, PT'S RR WAS IN THE HIGH 30'S-40'S, PT WAS YELLING "HELP" AND GASPING/MOANING. PT WAS GIVEN 2MG OF ATIVAN AND PRECEDEX WAS INCREASED TO 1MCG/HR FROM 0.8MCG. ONCE THE ATIVAN WAS GIVEN PT SLOWLY STARTED TO CALM DOWN AND HIS RR DECREASED TO THE LOW 20'S. PT'S HR INCREASED TO THE 120'S DURING THIS EPISODE. PT WAS HYPERTENSIVE WELL WITH SBP 190'S-200'S. CURRENTLY THE PT IS RESTING COMFORTABLY AT 100% FIO2 ON THE CPAP, RR 18-20. WILL CONTINUE TO MONITOR.
--- NOTE | 2020-04-08 19:12 | NUR ---
SHIFT SUMMARY... PT HAS BEEN ON CPAP AT 100% FIO2 FOR MOST OF THIS SHIFT. PT'S VS HAVE BEEN STABLE T/O SHIFT. PT'S FAMILY CAME TO VISIT AT HIS WINDOW THIS AFTERNOON AROUND 1530, DURING THIS TIME RT WAS IN THE ROOM WITH THIS RN AND PT WAS PLACED ON AIRVO AT 93%FIO2 AND 60L, PT WAS ABLE TO TOLERATE THIS FOR APROX 15MINS BEFORE HIS SATS STARTED TO DROP BELOW 88%. DURING THIS TIME THE PT WOULDN'T KEEP HIS MOUTH CLOSED AND WAS MOANING. PT'S COSTELLO AND RECTAL TUBE ARE PATENT AND DRAINING TO GRAVITY. MINIMAL OUTPUT IN THE PT'S RECTAL TUBE. PT IS STILL NOT TRACKING ANY ACTIVITY IN HIS ROOM, WHEN HIS EYES ARE OPEN THEY STARE AHEAD NOT FOLLOWING ANYTHING. CALL LIGHT IN REACH WILL CONTINUE TO MONITOR UNTIL REPORT IS GIVEN TO ONCOMING RN.
--- NOTE | 2020-04-08 19:30 | NUR ---
ASSUMPTION OF CARE RECEIVED REPORT FROM ENRIQUE NUNEZ. ASSUMED CARE OF PATIENT. PATIENT ON BIPAP 100% FIO2, PRECEDEX AND FENTANYL INFUSING.
--- NOTE | 2020-04-09 | NUR ---
RE-ASSESSMENT NO ACUTE CHANGES FROM INITIAL ASSESSMENT. PATIENT REQUIRING 100% FIO2 TO MAINTAIN SATS ABOVE 85%. PRECEDEX TITRATED CHARTED FOR CONSTANT MOANING AND YELLING. VITALS CHARTED, WILL MONITOR.
--- NOTE | 2020-04-09 04:00 | NUR ---
RE-ASSESSMENT NO ACUTE CHANGES FROM PREVIOUS ASSESSMENT. BIPAP IN PLACE AT 100% FIO2 SATS IN LOW 90'S. PATIENT CONFUSED AND AGITATED WHEN AWOKEN, RESTING COMFORTABLY AT THIS TIME WITH PRECEDEX AT 0.5MCG/KG/HR. VITALS STABLE CHARTED.
[2020-04-09 04:34] LABS: BASOPHILS ABSOLUTE AUTO 0.01 K/mm3 (0.00-0.23); BASOPHILS PERCENT AUTO 0 % (0-2); EOSINOPHILS ABSOLUTE AUTO 0.14 K/mm3 (0.00-0.68); EOSINOPHILS PERCENT AUTO 1 % (0-6); Hematocrit 27.7 % (37.0-53.0); IMMATURE GRAN ABSOLUTE AUTO 0.08 K/mm3 (0.00-0.10); IMMATURE GRAN PERCENT AUTO 1 % (0-1); LYMPHOCYTES ABSOLUTE AUTO 0.24 K/mm3 (0.84-5.20); LYMPHOCYTES PERCENT AUTO 2 % (21-46); MONOCYTES ABSOLUTE AUTO 0.43 K/mm3 (0.16-1.47); MONOCYTES PERCENT AUTO 3 % (4-13); Mean Corpuscular HGB 30.5 pg (26.0-34.0); Mean Corpuscular HGB Conc 32.5 g/dL (31.5-36.5); Mean Corpuscular Volume 94 fL (80-100); Mean Platelet Volume 11.7 fL (9.1-12.4); NEUTROPHILS ABSOLUTE AUTO 12.23 K/mm3 (1.96-9.15); NEUTROPHILS PERCENT AUTO 93 % (41-73); Platelet Count 125 K/mm3 (150-400); RDW Coefficient Variation 13.2 % (11.7-14.2); RDW Standard Deviation 45.8 fL (35.1-46.3); Red Blood Cell Count 2.95 M/mm3 (4.30-5.90); White Blood Cell Count 13.13 K/mm3 (4.00-11.30)
[2020-04-09 04:50] LABS: Anion Gap 5 mmol/L (6-16); Blood Urea Nitrogen 44 mg/dL (8-24); Bun/Creatinine Ratio 65.8 (12.0-20.0); CO2, Blood 26 mmol/L (21-32); Calcium, Blood 6.7 mg/dL (8.5-10.1); Chloride, Blood 107 mmol/L (98-108); Creatinine, Blood 0.67 mg/dL (0.60-1.20); Glomerular Filtration Rate >60 (60-); Glucose, Blood 172 mg/dL (70-99); Magnesium, Blood 1.9 mg/dL (1.6-2.4); Phosphorus, Blood 2.2 mg/dL (2.5-4.9); Potassium, Blood 3.8 mmol/L (3.5-5.5); Sodium, Blood 138 mmol/L (136-145)
--- NOTE | 2020-04-09 06:39 | NUR ---
SHIFT SUMMARY PATIENT REMAINS CONFUSED, MOANING AND CALLING OUT. BIPAP AT 100% FIO2 WITH VITALS CHARTED. PRECEDEX AND FENTANYL INFUSING CHARTED.
--- NOTE | 2020-04-09 11:51 | NUR ---
AM NOTE... ASSUMED CARE OF PT APROX 0700. PT IS ON CPAP WITH FIO2 AT 100%. PRECEDEX CURRENTLY RUNNING AT 0.6MCG. PT'S OTHER VS STABLE AT THIS TIME. PT RESPONDS TO PAINFUL STIMULI WITH MOANING. PT STILL IS NOT TRACKING ANY ACTIVITY WHEN HIS EYES ARE OPEN. L/S CLEAR IN THE UPPER LOBES FINE CRACKLES NOTED IN THE BASES. PT HAS 2+ EDEMA TO HIS RIGHT HAND AND 1+ TO HIS LEFT. TRACE EDEMA NOTED TO HIS BLE. BT PRESENT AND HYPOACTIVE,ABD IS SOFT AND NONTENDER TO PALP. RECTAL TUBE IS PATENT AND DRAINING SMALL AMOUNT OF LIQUID STOOLS TO GRAVITY. COSTELLO IS PATENT AND DRAINING DARK YELLOW URINE TO GRAVITY. DR. MATHEW AT THE BEDSIDE WITH RT, GLIDE SCOPE WAS USED TO ASSESS THE PT'S AIRWAY, PT'S AIRWAY WAY DRY, LARGE CAST APROX 3 CMx1.5cm LONG WAS REMOVED WITH FORCEPS. WILL CONTINUE TO MONITOR.
--- NOTE | 2020-04-09 12:30 | NUR ---
PT UPDATE... PT HAS HAD SEVERAL EIPSODES OF BRADYCARDIA AND HYPOTENSION SINCE THE START OF THIS SHIFT. DR. MATHEW AWARE, 500MLS BOLUS ORDERED AND GIVEN. AT APROX 1215 THE CPAP HOSE CAME OFF OF THE MASK, PT'S SATS BEGAN TO DROP QUICKLY, THIS RN WAS GETTING GOWNED UP AND HER MASK QUICKLY POSSIBLE, APROX 30-45 SECONDS AFTER THE HOSE CAME OFF THIS RN WAS IN THE ROOM, HIS SATS DROPPED DOWN TO 5%, PT WAS DUSKY WITH OPEN EYES AND NOT RESPONDING, THE HOSE WAS PUT BACK ON, THE PT WAS NOT TRIGGERING ANY BREATHS FOR THE CPAP MACHINE TO WORK, THIS RN AND THE SIDEROGRAPHIST STARTED TO BAG THE PT WHILE WAITING ON RT TO ARRIVE. ONCE RT ARRIVED THE PT WAS PUT BACK ON THE CPAP AT 100%FIO2, THE PT SLOWLY RECOVERED HIS O2 SATS TO >88%. RT AND THIS RN WERE IN THE ROOM SEVERAL MINUTES AFTER THE PT RECOVERED. WILL CONTINUE TO MONITOR.
--- NOTE | 2020-04-09 15:58 | NUR ---
PT UPDATE... AT APROX 1415 IT WAS NOTED THAT THE PT WAS HYPOTENSIVE WITH AGONAL BREATHING, RT WAS CALLED WELL DR. MATHEW AND FAMILY. WHEN NURSES ENTERED THE PT WAS NOT RESPONSIVE, TAKING AN OCCASONAL BREATH, CPAP NOT GIVING ANY BREATHS D/T PT NOT TRIGGERING, RT REMOVED CPAP MASK WITH INTENT TO PLACE NONREBREATHER MASK ON THE PT. PT DETERIORATED VERY QUICKLY AND ULTIMATELY AT 1427.
== END 2020-04-09 17:00 | DRG 177 ==
LOC: ER 20:39 → ERHOLD 20:40 → ICUW 20:40
PROVIDERS: Emergency Medicine; Internal Medicine; Internal Medicine Critical Care Medicine; Internal Medicine Pulmonary Disease; ADMIT Internal Medicine
PROC: 3E0333Z Introduction of Anti-inflammatory into Peripheral Vein, Percutaneous Approach (ICD-10-PCS; principal; 2020-03-25)
PROC: XW033E5 Introduction of Remdesivir Anti-infective into Peripheral Vein, Percutaneous Approach, New Technology Group 5 (ICD-10-PCS; 2020-03-25)
PROC: 5A09557 Assistance with Respiratory Ventilation, Greater than 96 Consecutive Hours, Continuous Positive Airway Pressure (ICD-10-PCS; 2020-03-25)
DX: U07.1 COVID-19 (principal); J96.01 Acute respiratory failure with hypoxia; G92 Toxic encephalopathy; J12.89 Other viral pneumonia; Z51.5 Encounter for palliative care; Z66 Do not resuscitate; E11.9 Type 2 diabetes mellitus without complications; I10 Essential (primary) hypertension; Z86.711 Personal history of pulmonary embolism; E78.5 Hyperlipidemia, unspecified; Z86.718 Personal history of other venous thrombosis and embolism; Z79.01 Long term (current) use of anticoagulants; E87.5 Hyperkalemia; E88.09 Other disorders of plasma-protein metabolism, not elsewhere classified; D69.6 Thrombocytopenia, unspecified; Z78.1 Physical restraint status
CPT/HCPCS: 36415; 36600; 51702; 71045; 71260; 80048; 80053; 81001; 82803; 82947; 83605; 83735; 83880; 84100; 84132; 84478; 84484; 85025; 85027; 85379; 85610; 85730; 87040; 87493; 93005; 93010; 94640; 94660; 96365; 96366; 99285-25; A9270; A9270-GY; C1751; J0610; J0696; J1100; J1630; J1650; J1940; J2060; J3010; J7040; J7050; J7060; Q9967; U0004